=== PATIENT | male | born 1955 | race Caucasian/White ===

== ENCOUNTER 2021-06-10 03:29 | Inpatient (IN) ==
[2021-06-10] MEDS ORDERED: *HR* Promethazine 25 MG/ML VIAL IM PRN (06:23)
[2021-06-10] MEDS ORDERED: Naloxone 0.4 MG/ML INJ IVP PRN (06:23)
[2021-06-10] MEDS ORDERED: Dextrose Gel 15 GM/37.5 ML TUBE PO PRN ×4 (06:31→08:46)
[2021-06-10] MEDS ORDERED: *HR* Dextrose 50 % in Water (Syg) 50 ML SYRINGE IVP PRN (06:31)
[2021-06-10] MEDS ORDERED: D5% in Water 1,000 ML IVC PRN ×2 (06:31→08:46)
[2021-06-10] MEDS ORDERED: Perflutren Lipid Microsphere 1.3 ML in 0.9 % Sodium Chloride 8.7 ML IVP PRN (06:49)
[2021-06-10 06:59] LABS: Basophils # 0.1 K/mcL (0.0-0.2); Basophils % 1.3 %; Eosinophils % 14.4 %; Immature Granulocytes % 0.3 % (0-4); Lymphocytes # 1.2 K/mcL (0.6-4.6); Mean Corpuscular HGB Conc 30.8 g/dL (31.6-35.5); Mean Corpuscular Hemoglobin 27.3 pg (28.0-33.3); Mean Corpuscular Volume 88.7 fL (83.0-100.0); Mean Platelet Volume 9.9 fL (9.4-12.4); Monocytes # 0.7 K/mcL (0.0-1.3); Monocytes % 18.1 %; Neutrophils # 1.3 K/mcL (1.6-8.9); Platelet Count 181 K/mcL (140-400); Red Blood Count 2.93 M/mcL (4.19-5.50); Red Cell Distribution Width 15.6 % (11.5-14.5); Segmented Neutrophils % 33.9 %; White Blood Count 3.8 K/mcL (4.3-11.1)
[2021-06-10 07:01] LABS: Eosinophils # 0.6 K/mcL (0.0-0.6)
[2021-06-10 07:06] LABS: INR 2.4; Prothrombin Time 26.5 Seconds (9.4-12.1)
[2021-06-10 07:20] LABS: Alanine Aminotransferase 35 Units/L (7-52); Albumin 3.1 g/dL (3.5-5.7); Albumin/Globulin Ratio 0.9 (1.1-2.2); Alkaline Phosphatase 199 Units/L (34-104); Aspartate Amino Transferase 31 Units/L (13-39); BUN/Creatinine Ratio 18 (6-26); Bilirubin,Total 0.3 mg/dL (0.3-1.0); Blood Urea Nitrogen 68 mg/dL (8-23); Calcium 8.5 mg/dL (8.6-10.3); Carbon Dioxide 19 mEq/L (23-29); Chloride 113 mEq/L (98-107); Globulin 3.3 g/dL (2.4-3.5); Glucose 63 mg/dL (70-105); Magnesium 2.4 mg/dL (1.6-2.6); Osmolality,Calculated 310 (280-300); Phosphorous 4.9 mg/dL (2.7-4.5); Potassium 4.7 mEq/L (3.5-5.1); Sodium 141 mEq/L (136-145); Total Protein 6.4 g/dL (6.4-8.9); Troponin I < 0.03 ng/mL (< 0.04); eGFR For African Americans 19 (> 60); eGFR For Non-African Americans 16 (> 60)
[2021-06-10] MEDS: cefTRIAXone 1,000 MG in 0.9 % Sodium Chloride Mini Bag 100 ML IVPB SCH (10:37)
[2021-06-10] MEDS: Doxycycline 100 MG in 0.9 % Sodium Chloride Mini Bag 100 ML IVPB SCH ×2 (10:38→20:43)
[2021-06-10] MEDS: Insulin LISPRO 300 UNITS/3 ML VIAL SUBQ SCH ×3 (10:38→20:42)
[2021-06-10] MEDS ORDERED: levoFLOXacin 750 MG/150 ML 750 MG/150 ML BAG IVPB SCH (17:00)
[2021-06-10] MEDS ORDERED: Warfarin perPT PO PRN (18:00)
[2021-06-10] MEDS ORDERED: *HR* Warfarin 5 MG TABLET PO ONE (18:00)
[2021-06-10] MEDS: 0.9 % Sodium Chloride 1,000 ML IVC SCH (18:01)
[2021-06-10] MEDS: Acetaminophen 325 MG TABLET PO PRN (20:40)
[2021-06-11] MEDS: cefTRIAXone 1,000 MG in 0.9 % Sodium Chloride Mini Bag 100 ML IVPB SCH (08:03)
[2021-06-11 08:04] LABS: Albumin 3.1 g/dL (3.5-5.7); Albumin/Globulin Ratio 0.9 (1.1-2.2); Bilirubin,Direct 0.1 mg/dL (0.0-0.2); Bilirubin,Indirect 0.2 mg/dL (0.0-1.0); Bilirubin,Total 0.3 mg/dL (0.3-1.0); Calcium 8.5 mg/dL (8.6-10.3); Globulin 3.4 g/dL (2.4-3.5); Magnesium 2.2 mg/dL (1.6-2.6); Potassium 5.1 mEq/L (3.5-5.1); Total Protein 6.5 g/dL (6.4-8.9)
[2021-06-11] MEDS: Insulin LISPRO 300 UNITS/3 ML VIAL SUBQ SCH ×4 (08:04→20:51)
[2021-06-11] MEDS: 0.9 % Sodium Chloride 1,000 ML IVC SCH ×2 (08:04→15:49)
[2021-06-11] MEDS: Doxycycline 100 MG in 0.9 % Sodium Chloride Mini Bag 100 ML IVPB SCH ×2 (08:04→20:48)
[2021-06-11 08:29] LABS: Basophils # 0.1 K/mcL (0.0-0.2); Basophils % 1.1 %; Eosinophils # 0.6 K/mcL (0.0-0.6); Hematocrit 27.5 % (37.5-50.1); Hemoglobin 8.1 g/dL (12.9-16.9); Immature Granulocytes % 0.4 % (0-4); Lymphocytes # 1.2 K/mcL (0.6-4.6); Lymphocytes % 25.9 %; Mean Corpuscular HGB Conc 29.5 g/dL (31.6-35.5); Mean Corpuscular Hemoglobin 26.6 pg (28.0-33.3); Mean Corpuscular Volume 90.5 fL (83.0-100.0); Mean Platelet Volume 10.5 fL (9.4-12.4); Monocytes # 0.7 K/mcL (0.0-1.3); Monocytes % 15.2 %; Neutrophils # 2.1 K/mcL (1.6-8.9); Platelet Count 211 K/mcL (140-400); Red Blood Count 3.04 M/mcL (4.19-5.50); Red Cell Distribution Width 15.5 % (11.5-14.5); Segmented Neutrophils % 44.4 %; White Blood Count 4.7 K/mcL (4.3-11.1)
[2021-06-11 08:40] LABS: INR 1.8; Prothrombin Time 19.8 Seconds (9.4-12.1)
[2021-06-11] MEDS: Divalproex (12 HR) 250 MG TABLET PO SCH ×2 (13:40→20:50)
[2021-06-11 14:55] LABS: Ferritin 154 ng/mL (20-250); Iron 31 mcg/dL (65-175)
[2021-06-11] MEDS ORDERED: Gabapentin 400 MG CAPSULE PO SCH (15:00)
[2021-06-11] MEDS: hydrALAZINE 25 MG TABLET PO SCH ×3 (15:48→20:50)
[2021-06-11] MEDS ORDERED: *HR* Warfarin 10 MG TABLET PO ONE (18:00)
[2021-06-11] MEDS: Primidone 50 MG TABLET PO SCH (20:49)
[2021-06-11] MEDS: amLODIPine 5 MG TABLET PO SCH (20:49)
[2021-06-11] MEDS: lamoTRIgine 100 MG TABLET PO SCH (20:50)
[2021-06-11] MEDS: Acetaminophen 325 MG TABLET PO PRN (20:52)
[2021-06-11] MEDS ORDERED: hydrALAZINE 25 MG TABLET PO ONE (21:46)
[2021-06-12] MEDS: 0.9 % Sodium Chloride 1,000 ML IVC SCH (02:18)
[2021-06-12 02:28] LABS: Calcium 8.2 mg/dL (8.6-10.3); Magnesium 2.1 mg/dL (1.6-2.6); Potassium 5.1 mEq/L (3.5-5.1)
[2021-06-12 02:29] LABS: Chol/HDL Ratio 3.9 (0-4.9)
[2021-06-12 02:44] LABS: Basophils % 0.8 %; Eosinophils # 0.6 K/mcL (0.0-0.6); Eosinophils % 11.7 %; Hematocrit 26.5 % (37.5-50.1); Hemoglobin 8.2 g/dL (12.9-16.9); Immature Granulocytes % 0.4 % (0-4); Lymphocytes # 1.2 K/mcL (0.6-4.6); Mean Corpuscular HGB Conc 30.9 g/dL (31.6-35.5); Mean Corpuscular Hemoglobin 27.8 pg (28.0-33.3); Mean Corpuscular Volume 89.8 fL (83.0-100.0); Mean Platelet Volume 10.3 fL (9.4-12.4); Monocytes # 0.8 K/mcL (0.0-1.3); Monocytes % 14.7 %; Neutrophils # 2.6 K/mcL (1.6-8.9); Platelet Count 223 K/mcL (140-400); Red Blood Count 2.95 M/mcL (4.19-5.50); Red Cell Distribution Width 15.1 % (11.5-14.5); Segmented Neutrophils % 49.4 %; White Blood Count 5.3 K/mcL (4.3-11.1)
[2021-06-12 02:57] LABS: INR 1.7; Prothrombin Time 18.5 Seconds (9.4-12.1)
[2021-06-12] MEDS: hydrALAZINE 25 MG TABLET PO SCH ×3 (05:28→21:15)
[2021-06-12] MEDS: Insulin LISPRO 300 UNITS/3 ML VIAL SUBQ SCH ×4 (07:50→21:23)
[2021-06-12] MEDS: Divalproex (12 HR) 250 MG TABLET PO SCH ×2 (07:59→21:15)
[2021-06-12] MEDS: Finasteride 5 MG TABLET PO SCH (07:59)
[2021-06-12] MEDS: Famotidine 20 MG TABLET PO SCH (08:00)
[2021-06-12] MEDS: cefTRIAXone 1,000 MG in 0.9 % Sodium Chloride Mini Bag 100 ML IVPB SCH (08:00)
[2021-06-12] MEDS: Gabapentin 300 MG CAPSULE PO SCH (08:00)
[2021-06-12] MEDS: Doxycycline 100 MG in 0.9 % Sodium Chloride Mini Bag 100 ML IVPB SCH (08:00)
[2021-06-12] MEDS ORDERED: Famotidine 20 MG TABLET PO SCH (09:00)
[2021-06-12] MEDS: polyethylene glycoL 3350 17 GM POWD.PACK PO SCH ×2 (10:51→21:16)
[2021-06-12 13:01] LABS: Bilirubin,Urine Negative (Negative); Blood,Urine Negative (Negative); Clarity,Urine Clear (Clear); Color,Urine Light-Yellow (Yellow); Glucose,Urine (UA) 300 mg/dL (Normal); Ketones,Urine Negative (Negative); Leukocyte Esterase,Urine Negative (Negative); Nitrite,Urine Negative (Negative); PH,Urine 6.5 pH Units (5.0-8.0); Protein,Urine >=600 mg/dL (Neg-Trace); Specific Gravity,Urine 1.017 (1.010-1.025); Squamous Epithelial Cell,Urine Few per hpf (None-Few); Urobilinogen,Urine Normal (Normal); WBC,Urine 0-3 per hpf (0-3)
[2021-06-12 14:01] LABS: Sodium, Urine 68.2 mEq/L
[2021-06-12 14:34] LABS: Creatinine,Urine 74 mg/dL; Microalbumin,Urine > 1350 mg/L; Protein/Creatinine Ratio,Urine 10.43 mg/mg (0.00-0.20)
[2021-06-12 14:43] LABS: Adenovirus Not Detected (Not Detect); Bordetella Pertussis Not Detected (Not Detect); Chlamydophila pneumoniae Not Detected (Not Detect); Coronavirus 229E Not Detected (Not Detect); Coronavirus HKU1 Not Detected (Not Detect); Coronavirus NL63 Not Detected (Not Detect); Coronavirus OC43 Not Detected (Not Detect); Human Metapneumovirus Not Detected (Not Detect); Human Rhinovirus/Enterovirus Not Detected (Not Detect); Influenza A Subtype 2009 H1 Not Detected (Not Detect); Influenza B Not Detected (Not Detect); Mycoplasma pneumoniae Not Detected (Not Detect); Parainfluenza Virus 1 Not Detected (Not Detect); Parainfluenza Virus 2 Not Detected (Not Detect); Parainfluenza Virus 3 Not Detected (Not Detect); Parainfluenza Virus 4 Not Detected (Not Detect); Respiratory Syncytial Virus Not Detected (Not Detect); SARS-CoV-2 Not Detected (Not Detect)
[2021-06-12] MEDS: Ringers Solution, Lactated 1,000 ML IVC SCH (15:12)
[2021-06-12] MEDS ORDERED: *HR* Warfarin 10 MG TABLET PO ONE (18:00)
[2021-06-12] MEDS: Doxycycline 100 MG CAPSULE PO SCH (21:14)
[2021-06-12] MEDS: amLODIPine 5 MG TABLET PO SCH (21:15)
[2021-06-12] MEDS: lamoTRIgine 100 MG TABLET PO SCH (21:15)
[2021-06-12] MEDS: Primidone 50 MG TABLET PO SCH (21:15)
[2021-06-12] MEDS: Tobramycin Opth SOLN 5 ML BOTTLE BOTH EYES SCH (21:24)
[2021-06-13 03:28] LABS: Hematocrit 27.4 % (37.5-50.1); Mean Corpuscular HGB Conc 29.2 g/dL (31.6-35.5); Mean Corpuscular Hemoglobin 26.4 pg (28.0-33.3); Mean Corpuscular Volume 90.4 fL (83.0-100.0); Mean Platelet Volume 10.3 fL (9.4-12.4); Platelet Count 218 K/mcL (140-400); Red Blood Count 3.03 M/mcL (4.19-5.50); Red Cell Distribution Width 15.4 % (11.5-14.5); White Blood Count 5.9 K/mcL (4.3-11.1)
[2021-06-13 03:38] LABS: Prothrombin Time 33.7 Seconds (9.4-12.1)
[2021-06-13 03:41] LABS: Calcium 8.5 mg/dL (8.6-10.3); Potassium 4.9 mEq/L (3.5-5.1)
[2021-06-13] MEDS: Ringers Solution, Lactated 1,000 ML IVC SCH (04:30)
[2021-06-13] MEDS: hydrALAZINE 25 MG TABLET PO SCH ×3 (06:47→20:25)
[2021-06-13] MEDS: Insulin LISPRO 300 UNITS/3 ML VIAL SUBQ SCH ×4 (09:04→20:26)
[2021-06-13] MEDS: cefTRIAXone 1,000 MG in 0.9 % Sodium Chloride Mini Bag 100 ML IVPB SCH (09:20)
[2021-06-13] MEDS: Divalproex (12 HR) 250 MG TABLET PO SCH ×2 (09:21→20:25)
[2021-06-13] MEDS: Doxycycline 100 MG CAPSULE PO SCH ×2 (09:21→20:24)
[2021-06-13] MEDS: Famotidine 20 MG TABLET PO SCH (09:21)
[2021-06-13] MEDS: Finasteride 5 MG TABLET PO SCH (09:21)
[2021-06-13] MEDS: Gabapentin 300 MG CAPSULE PO SCH (09:21)
[2021-06-13] MEDS: polyethylene glycoL 3350 17 GM POWD.PACK PO SCH ×2 (09:21→20:10)
[2021-06-13] MEDS: Tobramycin Opth SOLN 5 ML BOTTLE BOTH EYES SCH ×2 (09:30→20:27)
[2021-06-13] MEDS: Fluticasone Propionate Nasal 50 MCG/SPRAY BOTTLE NS SCH (12:38)
[2021-06-13] MEDS: Sodium Bicarbonate 50 MEQ in 0.45 % Sodium Chloride 1,000 ML IVC SCH (15:22)
[2021-06-13] MEDS: Primidone 50 MG TABLET PO SCH (20:24)
[2021-06-13] MEDS: amLODIPine 5 MG TABLET PO SCH (20:25)
[2021-06-13] MEDS: lamoTRIgine 100 MG TABLET PO SCH (20:25)
[2021-06-13] MEDS: Acetaminophen 325 MG TABLET PO PRN (20:36)
[2021-06-13 21:20] LABS: Complement C3 151 mg/dL (87-200)
[2021-06-14] MEDS: Sodium Bicarbonate 50 MEQ in 0.45 % Sodium Chloride 1,000 ML IVC SCH ×2 (02:10→14:25)
[2021-06-14] MEDS: hydrALAZINE 25 MG TABLET PO SCH ×3 (05:28→20:58)
[2021-06-14 05:47] LABS: Hematocrit 25.9 % (37.5-50.1); Hemoglobin 7.9 g/dL (12.9-16.9); Mean Corpuscular HGB Conc 30.5 g/dL (31.6-35.5); Mean Corpuscular Hemoglobin 27.1 pg (28.0-33.3); Mean Corpuscular Volume 88.7 fL (83.0-100.0); Platelet Count 212 K/mcL (140-400); Red Blood Count 2.92 M/mcL (4.19-5.50); Red Cell Distribution Width 15.3 % (11.5-14.5); White Blood Count 4.7 K/mcL (4.3-11.1)
[2021-06-14 05:53] LABS: INR 3.1; Prothrombin Time 34.7 Seconds (9.4-12.1)
[2021-06-14 06:39] LABS: Calcium 8.4 mg/dL (8.6-10.3); Potassium 4.8 mEq/L (3.5-5.1)
[2021-06-14] MEDS: Finasteride 5 MG TABLET PO SCH (08:15)
[2021-06-14] MEDS: Divalproex (12 HR) 250 MG TABLET PO SCH ×2 (08:15→20:59)
[2021-06-14] MEDS: NIFEdipine XL (24 HR) 60 MG TAB.ER.24 PO SCH (08:15)
[2021-06-14] MEDS: Doxycycline 100 MG CAPSULE PO SCH (08:15)
[2021-06-14] MEDS: Famotidine 20 MG TABLET PO SCH (08:15)
[2021-06-14] MEDS: Gabapentin 300 MG CAPSULE PO SCH (08:15)
[2021-06-14] MEDS: Insulin LISPRO 300 UNITS/3 ML VIAL SUBQ SCH ×4 (08:16→22:06)
[2021-06-14] MEDS: cefTRIAXone 1,000 MG in 0.9 % Sodium Chloride Mini Bag 100 ML IVPB SCH (08:16)
[2021-06-14] MEDS: ALFUZOSIN HCL 10 MG PO SCH (08:37)
[2021-06-14] MEDS: Fluticasone Propionate Nasal 50 MCG/SPRAY BOTTLE NS SCH (08:37)
[2021-06-14] MEDS: polyethylene glycoL 3350 17 GM POWD.PACK PO SCH ×2 (08:37→22:05)
[2021-06-14] MEDS: Tobramycin Opth SOLN 5 ML BOTTLE BOTH EYES SCH ×2 (08:38→22:05)
[2021-06-14] MEDS ORDERED: Ondansetron 4 MG/2 ML VIAL IVP ONE (14:45)
[2021-06-14] MEDS: Acetaminophen 325 MG TABLET PO PRN (15:47)
[2021-06-14] MEDS ORDERED: Prochlorperazine 10 MG/2 ML VIAL IVP ONE (16:00)
[2021-06-14] MEDS: lamoTRIgine 100 MG TABLET PO SCH (20:59)
[2021-06-14] MEDS: Primidone 50 MG TABLET PO SCH (20:59)
[2021-06-14 21:25] LABS: ABG Base Excess -4 mEq/L (-2 to 3); ABG HCO3 21 mEq/L (21-27); ABG Oxygen Saturation 90 % (95-98); ABG PCO2 38 mmHg (35-45); ABG PH 7.36 pH Units (7.32-7.45); ABG PO2 60 mmHg (85-104); ABG TCO2 22 mEq/L (20-26)
[2021-06-14 21:57] LABS: Amorphous Sediment,Urine Few per hpf (None-Few); Bacteria,Urine Few per hpf (None-Few); Mucus,Urine Few per lpf (None-Few); Squamous Epithelial Cell,Urine Few per hpf (None-Few)
[2021-06-14 22:46] LABS: Bilirubin,Urine Negative (Negative); Blood,Urine Negative (Negative); Clarity,Urine Clear (Clear); Color,Urine Yellow (Yellow); Glucose,Urine (UA) >=1000 mg/dL (Normal); Ketones,Urine Negative (Negative); Leukocyte Esterase,Urine Negative (Negative); Nitrite,Urine Negative (Negative); Protein,Urine >=600 mg/dL (Neg-Trace); Specific Gravity,Urine 1.021 (1.010-1.025); Urobilinogen,Urine Normal (Normal)
[2021-06-15] MEDS ORDERED: *HR* LORazepam 2 MG/ML VIAL IVP ONE (02:07)
[2021-06-15] MEDS: Sodium Bicarbonate 50 MEQ in 0.45 % Sodium Chloride 1,000 ML IVC SCH ×3 (02:15→21:31)
[2021-06-15] MEDS: hydrALAZINE 25 MG TABLET PO SCH ×3 (06:25→20:48)
[2021-06-15 07:17] LABS: INR 2.1; Prothrombin Time 22.8 Seconds (9.4-12.1)
[2021-06-15 07:24] LABS: Calcium 8.1 mg/dL (8.6-10.3); Potassium 4.8 mEq/L (3.5-5.1)
[2021-06-15] MEDS: Gabapentin 300 MG CAPSULE PO SCH (08:10)
[2021-06-15] MEDS: Famotidine 20 MG TABLET PO SCH (08:10)
[2021-06-15] MEDS: Finasteride 5 MG TABLET PO SCH (08:10)
[2021-06-15] MEDS: NIFEdipine XL (24 HR) 60 MG TAB.ER.24 PO SCH (08:10)
[2021-06-15] MEDS: Divalproex (12 HR) 250 MG TABLET PO SCH ×2 (08:10→20:48)
[2021-06-15] MEDS: ALFUZOSIN HCL 10 MG PO SCH (08:10)
[2021-06-15] MEDS: polyethylene glycoL 3350 17 GM POWD.PACK PO SCH ×2 (08:11→20:48)
[2021-06-15] MEDS: Fluticasone Propionate Nasal 50 MCG/SPRAY BOTTLE NS SCH (08:11)
[2021-06-15] MEDS: Insulin LISPRO 300 UNITS/3 ML VIAL SUBQ SCH ×4 (08:14→20:50)
[2021-06-15] MEDS: Tobramycin Opth SOLN 5 ML BOTTLE BOTH EYES SCH ×2 (08:16→20:49)
[2021-06-15 08:36] LABS: % Iron Saturation 14 % (20-55); Transferrin 162 mg/dL (200-400)
[2021-06-15] MEDS: Insulin DETEMIR 100 UNIT/ML X5UNITS SUBQ SCH ×2 (11:11→20:47)
[2021-06-15] MEDS ORDERED: *HR* Labetalol 20 MG/4 ML SYRINGE IVP ONE (16:22)
[2021-06-15] MEDS ORDERED: Furosemide 40 MG/4 ML VIAL IVP ONE (16:31)
[2021-06-15] MEDS ORDERED: NIFEdipine XL (24 HR) 30 MG TAB.ER.24 PO ONE (16:45)
[2021-06-15] MEDS ORDERED: *HR* Warfarin 5 MG TABLET PO ONE (18:00)
[2021-06-15] MEDS: lamoTRIgine 100 MG TABLET PO SCH (20:48)
[2021-06-15] MEDS: Primidone 50 MG TABLET PO SCH (20:48)
[2021-06-16] MEDS: Sodium Bicarbonate 50 MEQ in 0.45 % Sodium Chloride 1,000 ML IVC SCH (05:37)
[2021-06-16] MEDS: hydrALAZINE 25 MG TABLET PO SCH ×3 (05:38→20:30)
[2021-06-16 07:46] LABS: INR 1.6; Prothrombin Time 18.1 Seconds (9.4-12.1)
[2021-06-16 08:04] LABS: Calcium 8.4 mg/dL (8.6-10.3); Potassium 5.1 mEq/L (3.5-5.1)
[2021-06-16] MEDS: NIFEdipine XL (24 HR) 30 MG TAB.ER.24 PO SCH (08:57)
[2021-06-16] MEDS: Finasteride 5 MG TABLET PO SCH (08:58)
[2021-06-16] MEDS: Divalproex (12 HR) 250 MG TABLET PO SCH ×2 (08:58→20:29)
[2021-06-16] MEDS: polyethylene glycoL 3350 17 GM POWD.PACK PO SCH ×2 (08:58→20:30)
[2021-06-16] MEDS: Famotidine 20 MG TABLET PO SCH (08:58)
[2021-06-16] MEDS: Gabapentin 300 MG CAPSULE PO SCH (08:58)
[2021-06-16] MEDS: Insulin LISPRO 300 UNITS/3 ML VIAL SUBQ SCH ×4 (09:00→20:37)
[2021-06-16] MEDS: Fluticasone Propionate Nasal 50 MCG/SPRAY BOTTLE NS SCH (09:00)
[2021-06-16] MEDS: Tobramycin Opth SOLN 5 ML BOTTLE BOTH EYES SCH ×2 (09:01→20:31)
[2021-06-16] MEDS: ALFUZOSIN HCL 10 MG PO SCH (09:01)
[2021-06-16] MEDS: carvediloL 6.25 MG TABLET PO SCH ×2 (09:10→17:17)
[2021-06-16] MEDS: Insulin DETEMIR 100 UNIT/ML X5UNITS SUBQ SCH ×2 (09:52→20:29)
[2021-06-16] MEDS ORDERED: Albumin 25% 25gram/100mL 25 GM/100 ML IV.SOLN IVPB ONE ×2 (13:18→22:00)
[2021-06-16] MEDS ORDERED: Furosemide 40 MG/4 ML VIAL IVP ONE ×2 (15:30→23:59)
[2021-06-16] MEDS ORDERED: *HR* Warfarin 10 MG TABLET PO ONE (18:00)
[2021-06-16] MEDS: lamoTRIgine 100 MG TABLET PO SCH (20:30)
[2021-06-16] MEDS: Primidone 50 MG TABLET PO SCH (20:30)
[2021-06-17] MEDS: hydrALAZINE 25 MG TABLET PO SCH ×3 (05:26→22:20)
[2021-06-17 06:12] LABS: INR 2.2; Prothrombin Time 24.9 Seconds (9.4-12.1)
[2021-06-17 06:26] LABS: Calcium 9.1 mg/dL (8.6-10.3)
[2021-06-17] MEDS: Insulin LISPRO 300 UNITS/3 ML VIAL SUBQ SCH ×4 (07:33→22:22)
[2021-06-17] MEDS: NIFEdipine XL (24 HR) 30 MG TAB.ER.24 PO SCH (07:38)
[2021-06-17] MEDS: Famotidine 20 MG TABLET PO SCH (07:38)
[2021-06-17] MEDS: Divalproex (12 HR) 250 MG TABLET PO SCH ×2 (07:38→22:20)
[2021-06-17] MEDS: Finasteride 5 MG TABLET PO SCH (07:39)
[2021-06-17] MEDS: Fluticasone Propionate Nasal 50 MCG/SPRAY BOTTLE NS SCH (07:39)
[2021-06-17] MEDS: polyethylene glycoL 3350 17 GM POWD.PACK PO SCH ×2 (07:39→22:20)
[2021-06-17] MEDS: Tobramycin Opth SOLN 5 ML BOTTLE BOTH EYES SCH ×2 (07:39→22:22)
[2021-06-17] MEDS: Gabapentin 300 MG CAPSULE PO SCH (07:39)
[2021-06-17] MEDS: Insulin DETEMIR 100 UNIT/ML X5UNITS SUBQ SCH ×2 (07:41→22:23)
[2021-06-17] MEDS: carvediloL 6.25 MG TABLET PO SCH ×2 (07:44→18:09)
[2021-06-17] MEDS ORDERED: *HR* Heparin 10,000 UNIT/10 ML VIAL IV PRN (10:44)
[2021-06-17] MEDS ORDERED: 0.9 % Sodium Chloride 250 ML IVC PRN (10:44)
[2021-06-17] MEDS ORDERED: 0.9 % Sodium Chloride 1,000 ML PRIME SCH (10:45)
[2021-06-17] MEDS: Ondansetron 4 MG/2 ML VIAL IVP PRN (11:56)
[2021-06-17 12:39] LABS: Hepatitis B Surface Antibody < 3.10 mIU/mL
[2021-06-17 12:49] LABS: Hepatitis B Surface Antigen Nonreactive (Nonreactive)
[2021-06-17] MEDS ORDERED: *HR* Heparin 5,000 UNIT/ML VIAL ONE (14:07)
[2021-06-17] MEDS ORDERED: *HR* Warfarin 5 MG TABLET PO ONE (18:00)
[2021-06-17] MEDS: Primidone 50 MG TABLET PO SCH (22:20)
[2021-06-17] MEDS: lamoTRIgine 100 MG TABLET PO SCH (22:20)
[2021-06-18 01:39] LABS: Lambda Qnt Free Light Chains 52.7 mg/L (5.71-26.30)
[2021-06-18 03:10] LABS: Hematocrit 22.8 % (37.5-50.1); Mean Corpuscular HGB Conc 30.7 g/dL (31.6-35.5); Mean Corpuscular Hemoglobin 27.3 pg (28.0-33.3); Mean Corpuscular Volume 89.1 fL (83.0-100.0); Mean Platelet Volume 10.2 fL (9.4-12.4); Platelet Count 186 K/mcL (140-400); Red Blood Count 2.56 M/mcL (4.19-5.50); Red Cell Distribution Width 15.4 % (11.5-14.5); White Blood Count 5.3 K/mcL (4.3-11.1)
[2021-06-18 03:24] LABS: Calcium 8.7 mg/dL (8.6-10.3); Potassium 4.8 mEq/L (3.5-5.1)
[2021-06-18 03:37] LABS: INR 3.7; Prothrombin Time 40.5 Seconds (9.4-12.1)
[2021-06-18] MEDS: hydrALAZINE 25 MG TABLET PO SCH (05:28)
[2021-06-18 06:53] LABS: ANA IgG by ELISA DETECTED (None Detected); Kappa Qnt Free Light Chains 83.57 mg/L (3.30-19.40); Serine Protease-3 Antibody 6 AU/mL (0-19)
[2021-06-18] MEDS: *HR* Dextrose 50 % in Water (Syg) 50 ML SYRINGE IVP PRN ×3 (07:09→20:10)
[2021-06-18] MEDS: Insulin LISPRO 300 UNITS/3 ML VIAL SUBQ SCH ×4 (07:50→20:16)
[2021-06-18] MEDS ORDERED: *HR* Heparin 10,000 UNIT/10 ML VIAL IV PRN (07:51)
[2021-06-18] MEDS ORDERED: 0.9 % Sodium Chloride 250 ML IVC PRN (07:51)
[2021-06-18] MEDS: Divalproex (12 HR) 250 MG TABLET PO SCH ×2 (07:53→21:15)
[2021-06-18] MEDS: carvediloL 6.25 MG TABLET PO SCH (07:53)
[2021-06-18] MEDS: Finasteride 5 MG TABLET PO SCH (07:53)
[2021-06-18] MEDS: Famotidine 20 MG TABLET PO SCH (07:53)
[2021-06-18] MEDS: NIFEdipine XL (24 HR) 30 MG TAB.ER.24 PO SCH (07:53)
[2021-06-18] MEDS: Gabapentin 300 MG CAPSULE PO SCH (07:53)
[2021-06-18] MEDS: polyethylene glycoL 3350 17 GM POWD.PACK PO SCH ×2 (07:54→21:15)
[2021-06-18] MEDS: Insulin DETEMIR 100 UNIT/ML X5UNITS SUBQ SCH ×2 (07:54→20:17)
[2021-06-18] MEDS: Tobramycin Opth SOLN 5 ML BOTTLE BOTH EYES SCH ×2 (07:54→21:15)
[2021-06-18] MEDS: Fluticasone Propionate Nasal 50 MCG/SPRAY BOTTLE NS SCH (07:55)
[2021-06-18] MEDS ORDERED: cloNIDine HCL 0.1 MG TABLET PO PRN (11:13)
[2021-06-18] MEDS: Acetaminophen 325 MG TABLET PO PRN (15:10)
[2021-06-18] MEDS: carvediloL 25 MG TABLET PO SCH (17:55)
[2021-06-18 21:08] LABS: Hematocrit 23.2 % (37.5-50.1); Hemoglobin 6.9 g/dL (12.9-16.9)
[2021-06-18] MEDS: lamoTRIgine 100 MG TABLET PO SCH (21:15)
[2021-06-18] MEDS: Primidone 50 MG TABLET PO SCH (21:15)
[2021-06-18] MEDS: Melatonin 3 MG TABLET PO PRN (23:13)
[2021-06-18] MEDS ORDERED: 0.9 % Sodium Chloride 250 ML ONE (23:46)
[2021-06-19] MEDS ORDERED: 0.9 % Sodium Chloride 250 ML IVC PRN (08:39)
[2021-06-19] MEDS ORDERED: *HR* Heparin 10,000 UNIT/10 ML VIAL IV PRN (08:39)
[2021-06-19] MEDS ORDERED: 0.9 % Sodium Chloride 1,000 ML PRIME SCH (08:45)
[2021-06-19] MEDS: Insulin LISPRO 300 UNITS/3 ML VIAL SUBQ SCH ×4 (09:42→20:30)
[2021-06-19] MEDS: carvediloL 25 MG TABLET PO SCH ×2 (09:43→17:50)
[2021-06-19] MEDS: Divalproex (12 HR) 250 MG TABLET PO SCH ×2 (09:43→20:34)
[2021-06-19] MEDS: Finasteride 5 MG TABLET PO SCH (09:43)
[2021-06-19] MEDS: polyethylene glycoL 3350 17 GM POWD.PACK PO SCH ×2 (09:43→20:32)
[2021-06-19] MEDS: Fluticasone Propionate Nasal 50 MCG/SPRAY BOTTLE NS SCH (09:43)
[2021-06-19] MEDS: Insulin DETEMIR 100 UNIT/ML X5UNITS SUBQ SCH ×2 (09:43→20:31)
[2021-06-19] MEDS: Tobramycin Opth SOLN 5 ML BOTTLE BOTH EYES SCH ×2 (09:44→23:53)
[2021-06-19 10:31] LABS: Basophils # 0.1 K/mcL (0.0-0.2); Basophils % 0.8 %; Eosinophils # 0.6 K/mcL (0.0-0.6); Eosinophils % 9.6 %; Hematocrit 26.2 % (37.5-50.1); Immature Granulocytes % 0.5 % (0-4); Lymphocytes # 1.1 K/mcL (0.6-4.6); Lymphocytes % 17.1 %; Mean Corpuscular HGB Conc 30.5 g/dL (31.6-35.5); Mean Corpuscular Hemoglobin 26.8 pg (28.0-33.3); Mean Corpuscular Volume 87.6 fL (83.0-100.0); Mean Platelet Volume 9.6 fL (9.4-12.4); Monocytes # 0.8 K/mcL (0.0-1.3); Monocytes % 11.8 %; Neutrophils # 3.9 K/mcL (1.6-8.9); Platelet Count 164 K/mcL (140-400); Red Blood Count 2.99 M/mcL (4.19-5.50); Red Cell Distribution Width 15.1 % (11.5-14.5); Segmented Neutrophils % 60.2 %; White Blood Count 6.4 K/mcL (4.3-11.1)
[2021-06-19 10:47] LABS: INR 4.6; Prothrombin Time 50.2 Seconds (9.4-12.1)
[2021-06-19 10:48] LABS: Bilirubin,Total 0.4 mg/dL (0.3-1.0); Calcium 8.2 mg/dL (8.6-10.3); Globulin 2.9 g/dL (2.4-3.5); Magnesium 2.1 mg/dL (1.6-2.6); Potassium 4.5 mEq/L (3.5-5.1); Total Protein 5.9 g/dL (6.4-8.9)
[2021-06-19] MEDS: Ondansetron 4 MG/2 ML VIAL IVP PRN (17:51)
[2021-06-19] MEDS: lamoTRIgine 100 MG TABLET PO SCH (20:34)
[2021-06-19] MEDS: Gabapentin 100 MG CAPSULE PO SCH (20:34)
[2021-06-19] MEDS: Primidone 50 MG TABLET PO SCH (20:34)
[2021-06-19] MEDS: cloNIDine HCL 0.1 MG TABLET PO SCH (20:34)
[2021-06-19] MEDS: Famotidine 20 MG TABLET PO SCH (20:35)
[2021-06-19 23:56] LABS: ANA HEp-2 IgG IFA DETECTED (<1:80); Anti Nuclear Ab Pattern HOMOGENEOUS
[2021-06-20 06:05] LABS: Basophils % 0.7 %; Eosinophils # 0.5 K/mcL (0.0-0.6); Eosinophils % 8.3 %; Hemoglobin 8.3 g/dL (12.9-16.9); Immature Granulocytes % 0.8 % (0-4); Lymphocytes # 1.2 K/mcL (0.6-4.6); Lymphocytes % 19.4 %; Mean Corpuscular HGB Conc 29.6 g/dL (31.6-35.5); Mean Corpuscular Hemoglobin 25.9 pg (28.0-33.3); Mean Corpuscular Volume 87.5 fL (83.0-100.0); Monocytes # 0.9 K/mcL (0.0-1.3); Monocytes % 14.3 %; Neutrophils # 3.5 K/mcL (1.6-8.9); Platelet Count 189 K/mcL (140-400); Red Cell Distribution Width 14.5 % (11.5-14.5); Segmented Neutrophils % 56.5 %; White Blood Count 6.1 K/mcL (4.3-11.1)
[2021-06-20 06:13] LABS: INR 3.7; Prothrombin Time 41.1 Seconds (9.4-12.1)
[2021-06-20 06:35] LABS: Albumin 3.1 g/dL (3.5-5.7); Bilirubin,Total 0.4 mg/dL (0.3-1.0); Calcium 8.8 mg/dL (8.6-10.3); Magnesium 2.1 mg/dL (1.6-2.6); Potassium 4.6 mEq/L (3.5-5.1); Total Protein 6.1 g/dL (6.4-8.9)
[2021-06-20] MEDS: Insulin LISPRO 300 UNITS/3 ML VIAL SUBQ SCH ×4 (07:37→21:13)
[2021-06-20] MEDS: carvediloL 25 MG TABLET PO SCH ×2 (08:28→16:54)
[2021-06-20] MEDS: cloNIDine HCL 0.1 MG TABLET PO SCH ×3 (08:28→21:12)
[2021-06-20] MEDS: Divalproex (12 HR) 250 MG TABLET PO SCH ×2 (08:28→21:13)
[2021-06-20] MEDS: Fluticasone Propionate Nasal 50 MCG/SPRAY BOTTLE NS SCH (08:28)
[2021-06-20] MEDS: Finasteride 5 MG TABLET PO SCH (08:28)
[2021-06-20] MEDS: Tobramycin Opth SOLN 5 ML BOTTLE BOTH EYES SCH ×2 (08:29→21:00)
[2021-06-20] MEDS: Insulin DETEMIR 100 UNIT/ML X5UNITS SUBQ SCH ×2 (08:36→21:13)
[2021-06-20] MEDS: polyethylene glycoL 3350 17 GM POWD.PACK PO SCH ×2 (08:37→21:13)
[2021-06-20] MEDS ORDERED: *HR* Warfarin 2 MG TABLET PO ONE (18:00)
[2021-06-20] MEDS: Gabapentin 100 MG CAPSULE PO SCH (21:12)
[2021-06-20] MEDS: Famotidine 20 MG TABLET PO SCH (21:12)
[2021-06-20] MEDS: Melatonin 3 MG TABLET PO PRN (21:12)
[2021-06-20] MEDS: lamoTRIgine 100 MG TABLET PO SCH (21:12)
[2021-06-20] MEDS: Primidone 50 MG TABLET PO SCH (21:13)
[2021-06-21 05:54] LABS: Basophils # 0.1 K/mcL (0.0-0.2); Basophils % 0.9 %; Eosinophils # 0.6 K/mcL (0.0-0.6); Eosinophils % 10.8 %; Hematocrit 26.7 % (37.5-50.1); Hemoglobin 8.1 g/dL (12.9-16.9); Immature Granulocytes % 0.7 % (0-4); Lymphocytes # 1.5 K/mcL (0.6-4.6); Lymphocytes % 26.4 %; Mean Corpuscular HGB Conc 30.3 g/dL (31.6-35.5); Mean Corpuscular Hemoglobin 26.7 pg (28.0-33.3); Mean Corpuscular Volume 88.1 fL (83.0-100.0); Monocytes # 0.9 K/mcL (0.0-1.3); Monocytes % 15.6 %; Neutrophils # 2.6 K/mcL (1.6-8.9); Platelet Count 180 K/mcL (140-400); Red Blood Count 3.03 M/mcL (4.19-5.50); Red Cell Distribution Width 14.5 % (11.5-14.5); Segmented Neutrophils % 45.6 %; White Blood Count 5.7 K/mcL (4.3-11.1)
[2021-06-21 06:03] LABS: Prothrombin Time 22.3 Seconds (9.4-12.1)
[2021-06-21 06:07] LABS: Bilirubin,Total 0.3 mg/dL (0.3-1.0); Calcium 8.5 mg/dL (8.6-10.3); Magnesium 2.2 mg/dL (1.6-2.6); Potassium 4.4 mEq/L (3.5-5.1)
[2021-06-21] MEDS: Insulin LISPRO 300 UNITS/3 ML VIAL SUBQ SCH ×4 (07:34→21:07)
[2021-06-21] MEDS: carvediloL 25 MG TABLET PO SCH ×2 (09:06→16:35)
[2021-06-21] MEDS: hydrALAZINE 25 MG TABLET PO SCH ×3 (09:06→21:07)
[2021-06-21] MEDS: cloNIDine HCL 0.1 MG TABLET PO SCH ×3 (09:06→21:07)
[2021-06-21] MEDS: Divalproex (12 HR) 250 MG TABLET PO SCH ×2 (09:06→21:06)
[2021-06-21] MEDS: Finasteride 5 MG TABLET PO SCH (09:06)
[2021-06-21] MEDS: Insulin DETEMIR 100 UNIT/ML X5UNITS SUBQ SCH ×2 (09:07→21:11)
[2021-06-21] MEDS: Fluticasone Propionate Nasal 50 MCG/SPRAY BOTTLE NS SCH (09:09)
[2021-06-21] MEDS: Tobramycin Opth SOLN 5 ML BOTTLE BOTH EYES SCH ×2 (09:09→21:07)
[2021-06-21] MEDS: polyethylene glycoL 3350 17 GM POWD.PACK PO SCH ×2 (09:12→21:07)
[2021-06-21] MEDS ORDERED: *HR* Heparin 5,000 UNIT/ML VIAL IVP PRN ×2 (12:09)
[2021-06-21] MEDS: Heparin 25,000 UNIT/250 ML 25,000 UNIT/250 ML IV.SOLN IVC SCH (13:11)
[2021-06-21] MEDS: Famotidine 20 MG TABLET PO SCH (21:06)
[2021-06-21] MEDS: Primidone 50 MG TABLET PO SCH (21:07)
[2021-06-21] MEDS: lamoTRIgine 100 MG TABLET PO SCH (21:07)
[2021-06-21] MEDS: Gabapentin 100 MG CAPSULE PO SCH (21:07)
[2021-06-22 03:27] LABS: Basophils # 0.1 K/mcL (0.0-0.2); Basophils % 0.8 %; Eosinophils # 0.7 K/mcL (0.0-0.6); Eosinophils % 9.2 %; Hematocrit 25.8 % (37.5-50.1); Hemoglobin 7.9 g/dL (12.9-16.9); Immature Granulocytes % 1.5 % (0-4); Lymphocytes # 1.7 K/mcL (0.6-4.6); Mean Corpuscular HGB Conc 30.6 g/dL (31.6-35.5); Mean Corpuscular Hemoglobin 26.8 pg (28.0-33.3); Mean Corpuscular Volume 87.5 fL (83.0-100.0); Mean Platelet Volume 10.2 fL (9.4-12.4); Monocytes # 0.9 K/mcL (0.0-1.3); Neutrophils # 4.1 K/mcL (1.6-8.9); Platelet Count 181 K/mcL (140-400); Red Blood Count 2.95 M/mcL (4.19-5.50); Red Cell Distribution Width 14.4 % (11.5-14.5); Segmented Neutrophils % 54.5 %; White Blood Count 7.5 K/mcL (4.3-11.1)
[2021-06-22 03:47] LABS: Bilirubin,Total 0.3 mg/dL (0.3-1.0); Calcium 8.5 mg/dL (8.6-10.3); Globulin 3.1 g/dL (2.4-3.5); Magnesium 2.2 mg/dL (1.6-2.6); Potassium 4.4 mEq/L (3.5-5.1); Total Protein 6.1 g/dL (6.4-8.9)
[2021-06-22 04:06] LABS: Heparin anti-factor XA UFH 0.87 IU/mL (0.30-0.70); INR 1.7; Prothrombin Time 18.9 Seconds (9.4-12.1)
[2021-06-22] MEDS: Heparin 25,000 UNIT/250 ML 25,000 UNIT/250 ML IV.SOLN IVC SCH (05:59)
[2021-06-22] MEDS: Insulin LISPRO 300 UNITS/3 ML VIAL SUBQ SCH ×4 (07:48→22:03)
[2021-06-22] MEDS ORDERED: cloNIDine HCL 0.1 MG TABLET PO SCH ×2 (09:00)
[2021-06-22 10:01] LABS: Histone Antibody, IgG 0.2 Units (0.0-0.9)
[2021-06-22] MEDS: Ipratropium/Albuterol Neb 3 ML IH SCH ×3 (10:08→19:55)
[2021-06-22] MEDS: Insulin DETEMIR 100 UNIT/ML X5UNITS SUBQ SCH ×2 (10:42→22:02)
[2021-06-22] MEDS: polyethylene glycoL 3350 17 GM POWD.PACK PO SCH ×2 (11:38→22:02)
[2021-06-22] MEDS: Tobramycin Opth SOLN 5 ML BOTTLE BOTH EYES SCH ×2 (11:40→22:02)
[2021-06-22] MEDS: Fluticasone Propionate Nasal 50 MCG/SPRAY BOTTLE NS SCH (11:40)
[2021-06-22] MEDS: Divalproex (12 HR) 250 MG TABLET PO SCH ×2 (11:42→22:01)
[2021-06-22] MEDS: Finasteride 5 MG TABLET PO SCH (11:42)
[2021-06-22] MEDS: carvediloL 25 MG TABLET PO SCH ×2 (11:42→16:46)
[2021-06-22] MEDS: hydrALAZINE 25 MG TABLET PO SCH ×3 (11:43→22:01)
[2021-06-22] MEDS: Gabapentin 100 MG CAPSULE PO SCH (11:43)
[2021-06-22] MEDS ORDERED: Iron Sucrose Complex 200 MG in 0.9 % Sodium Chloride 100 ML IVPB SCH (12:30)
[2021-06-22] MEDS: Loratadine 10 MG TABLET PO SCH (13:41)
[2021-06-22] MEDS: cloNIDine HCL 0.1 MG TABLET PO SCH ×3 (13:41→22:03)
[2021-06-22] MEDS: lamoTRIgine 100 MG TABLET PO SCH (22:01)
[2021-06-22] MEDS: Famotidine 20 MG TABLET PO SCH (22:01)
[2021-06-22] MEDS: Primidone 50 MG TABLET PO SCH (22:01)
[2021-06-22] MEDS: Melatonin 3 MG TABLET PO PRN (22:01)
[2021-06-23] MEDS: Heparin 25,000 UNIT/250 ML 25,000 UNIT/250 ML IV.SOLN IVC SCH (01:42)
[2021-06-23] MEDS: Ipratropium/Albuterol Neb 3 ML IH SCH ×4 (03:54→20:23)
[2021-06-23 06:04] LABS: Basophils # 0.1 K/mcL (0.0-0.2); Basophils % 0.7 %; Eosinophils # 0.7 K/mcL (0.0-0.6); Eosinophils % 9.2 %; Hematocrit 24.3 % (37.5-50.1); Hemoglobin 7.5 g/dL (12.9-16.9); Immature Granulocytes % 2.3 % (0-4); Lymphocytes # 1.5 K/mcL (0.6-4.6); Lymphocytes % 20.2 %; Mean Corpuscular HGB Conc 30.9 g/dL (31.6-35.5); Mean Corpuscular Hemoglobin 27.1 pg (28.0-33.3); Mean Corpuscular Volume 87.7 fL (83.0-100.0); Mean Platelet Volume 10.5 fL (9.4-12.4); Monocytes % 13.5 %; Platelet Count 188 K/mcL (140-400); Red Blood Count 2.77 M/mcL (4.19-5.50); Red Cell Distribution Width 14.5 % (11.5-14.5); Segmented Neutrophils % 54.1 %; White Blood Count 7.4 K/mcL (4.3-11.1)
[2021-06-23 06:12] LABS: INR 1.3; Prothrombin Time 14.9 Seconds (9.4-12.1)
[2021-06-23 06:16] LABS: Bilirubin,Total 0.3 mg/dL (0.3-1.0); Calcium 8.5 mg/dL (8.6-10.3); Globulin 2.9 g/dL (2.4-3.5); Potassium 4.4 mEq/L (3.5-5.1); Total Protein 5.9 g/dL (6.4-8.9)
[2021-06-23] MEDS: cloNIDine HCL 0.1 MG TABLET PO SCH ×3 (09:29→21:13)
[2021-06-23] MEDS: Loratadine 10 MG TABLET PO SCH (09:29)
[2021-06-23] MEDS: carvediloL 25 MG TABLET PO SCH ×2 (09:29→17:13)
[2021-06-23] MEDS: hydrALAZINE 25 MG TABLET PO SCH ×2 (09:29→18:14)
[2021-06-23] MEDS: Divalproex (12 HR) 250 MG TABLET PO SCH ×2 (09:29→21:12)
[2021-06-23] MEDS: Finasteride 5 MG TABLET PO SCH (09:29)
[2021-06-23] MEDS: Tobramycin Opth SOLN 5 ML BOTTLE BOTH EYES SCH ×2 (09:30→21:15)
[2021-06-23] MEDS: Insulin LISPRO 300 UNITS/3 ML VIAL SUBQ SCH ×4 (09:30→21:12)
[2021-06-23] MEDS: Fluticasone Propionate Nasal 50 MCG/SPRAY BOTTLE NS SCH (09:30)
[2021-06-23] MEDS: polyethylene glycoL 3350 17 GM POWD.PACK PO SCH ×2 (09:30→21:15)
[2021-06-23] MEDS: Insulin DETEMIR 100 UNIT/ML X5UNITS SUBQ SCH ×2 (09:30→21:14)
[2021-06-23] MEDS ORDERED: Iron Sucrose Complex 200 MG in 0.9 % Sodium Chloride 100 ML IVPB ONE (09:52)
[2021-06-23] MEDS: Clotrimazole 1% CRM 15 GM TUBE TP PRN (17:15)
[2021-06-23] MEDS ORDERED: Warfarin perPT PO PRN (18:00)
[2021-06-23] MEDS ORDERED: *HR* Warfarin 2.5 MG TABLET PO ONE (18:00)
[2021-06-23] MEDS: Melatonin 3 MG TABLET PO PRN (21:11)
[2021-06-23] MEDS: Primidone 50 MG TABLET PO SCH (21:11)
[2021-06-23] MEDS: Gabapentin 100 MG CAPSULE PO SCH (21:11)
[2021-06-23] MEDS: lamoTRIgine 100 MG TABLET PO SCH (21:12)
[2021-06-23] MEDS: Famotidine 20 MG TABLET PO SCH (21:12)
[2021-06-24] MEDS: Ipratropium/Albuterol Neb 3 ML IH SCH ×5 (04:07→21:35)
[2021-06-24 05:49] LABS: Basophils # 0.1 K/mcL (0.0-0.2); Basophils % 0.7 %; Eosinophils # 0.7 K/mcL (0.0-0.6); Eosinophils % 8.6 %; Hematocrit 24.4 % (37.5-50.1); Hemoglobin 7.5 g/dL (12.9-16.9); Immature Granulocytes % 4.2 % (0-4); Lymphocytes # 1.5 K/mcL (0.6-4.6); Lymphocytes % 19.2 %; Mean Corpuscular HGB Conc 30.7 g/dL (31.6-35.5); Mean Corpuscular Hemoglobin 27.1 pg (28.0-33.3); Mean Corpuscular Volume 88.1 fL (83.0-100.0); Mean Platelet Volume 10.5 fL (9.4-12.4); Monocytes # 1.2 K/mcL (0.0-1.3); Monocytes % 14.9 %; Neutrophils # 4.2 K/mcL (1.6-8.9); Platelet Count 197 K/mcL (140-400); Red Blood Count 2.77 M/mcL (4.19-5.50); Red Cell Distribution Width 14.7 % (11.5-14.5); Segmented Neutrophils % 52.4 %
[2021-06-24] MEDS: Heparin 25,000 UNIT/250 ML 25,000 UNIT/250 ML IV.SOLN IVC SCH ×4 (05:53→23:55)
[2021-06-24 05:57] LABS: Albumin 2.9 g/dL (3.5-5.7); Bilirubin,Total 0.4 mg/dL (0.3-1.0); Calcium 8.3 mg/dL (8.6-10.3); Potassium 4.5 mEq/L (3.5-5.1); Total Protein 5.9 g/dL (6.4-8.9)
[2021-06-24 06:00] LABS: INR 1.3; Prothrombin Time 14.3 Seconds (9.4-12.1)
[2021-06-24] MEDS: Insulin LISPRO 300 UNITS/3 ML VIAL SUBQ SCH ×4 (08:24→21:31)
[2021-06-24] MEDS: carvediloL 25 MG TABLET PO SCH ×2 (08:29→16:04)
[2021-06-24] MEDS: cloNIDine HCL 0.1 MG TABLET PO SCH ×3 (08:29→21:31)
[2021-06-24] MEDS: Divalproex (12 HR) 250 MG TABLET PO SCH ×2 (08:29→21:28)
[2021-06-24] MEDS: polyethylene glycoL 3350 17 GM POWD.PACK PO SCH ×2 (08:29→21:31)
[2021-06-24] MEDS: Finasteride 5 MG TABLET PO SCH (08:29)
[2021-06-24] MEDS: Loratadine 10 MG TABLET PO SCH (08:29)
[2021-06-24] MEDS: Insulin DETEMIR 100 UNIT/ML X5UNITS SUBQ SCH ×2 (08:30→21:32)
[2021-06-24] MEDS: Fluticasone Propionate Nasal 50 MCG/SPRAY BOTTLE NS SCH (08:30)
[2021-06-24] MEDS: Tobramycin Opth SOLN 5 ML BOTTLE BOTH EYES SCH ×2 (08:38→21:32)
[2021-06-24] MEDS: Acetaminophen 325 MG TABLET PO PRN (16:06)
[2021-06-24] MEDS: Clotrimazole 1% CRM 15 GM TUBE TP PRN (16:08)
[2021-06-24] MEDS ORDERED: *HR* Warfarin 2.5 MG TABLET PO ONE (18:00)
[2021-06-24] MEDS: Famotidine 20 MG TABLET PO SCH (21:28)
[2021-06-24] MEDS: Gabapentin 100 MG CAPSULE PO SCH (21:29)
[2021-06-24] MEDS: Melatonin 3 MG TABLET PO PRN (21:29)
[2021-06-24] MEDS: lamoTRIgine 100 MG TABLET PO SCH (21:30)
[2021-06-24] MEDS: Primidone 50 MG TABLET PO SCH (21:30)
[2021-06-25] MEDS: Ipratropium/Albuterol Neb 3 ML IH SCH ×4 (03:43→20:32)
[2021-06-25 05:08] LABS: Basophils # 0.1 K/mcL (0.0-0.2); Basophils % 0.9 %; Eosinophils # 0.6 K/mcL (0.0-0.6); Hematocrit 24.7 % (37.5-50.1); Hemoglobin 7.7 g/dL (12.9-16.9); Immature Granulocytes % 3.8 % (0-4); Lymphocytes # 1.5 K/mcL (0.6-4.6); Lymphocytes % 16.9 %; Mean Corpuscular HGB Conc 31.2 g/dL (31.6-35.5); Mean Corpuscular Hemoglobin 27.3 pg (28.0-33.3); Mean Corpuscular Volume 87.6 fL (83.0-100.0); Mean Platelet Volume 10.4 fL (9.4-12.4); Monocytes # 1.2 K/mcL (0.0-1.3); Monocytes % 13.8 %; Neutrophils # 5.2 K/mcL (1.6-8.9); Platelet Count 228 K/mcL (140-400); Red Blood Count 2.82 M/mcL (4.19-5.50); Red Cell Distribution Width 14.7 % (11.5-14.5); Segmented Neutrophils % 57.6 %
[2021-06-25 05:17] LABS: INR 1.4; Prothrombin Time 15.6 Seconds (9.4-12.1)
[2021-06-25 05:24] LABS: Albumin 2.9 g/dL (3.5-5.7); Albumin/Globulin Ratio 0.9 (1.1-2.2); Bilirubin,Total 0.4 mg/dL (0.3-1.0); Calcium 8.3 mg/dL (8.6-10.3); Globulin 3.3 g/dL (2.4-3.5); Potassium 4.5 mEq/L (3.5-5.1); Total Protein 6.2 g/dL (6.4-8.9)
[2021-06-25] MEDS: Insulin LISPRO 300 UNITS/3 ML VIAL SUBQ SCH ×4 (07:23→22:06)
[2021-06-25] MEDS: Ondansetron 4 MG/2 ML VIAL IVP PRN (07:34)
[2021-06-25] MEDS: Acetaminophen 325 MG TABLET PO PRN (07:34)
[2021-06-25] MEDS: cloNIDine HCL 0.1 MG TABLET PO SCH ×3 (07:35→22:41)
[2021-06-25] MEDS: polyethylene glycoL 3350 17 GM POWD.PACK PO SCH ×2 (07:35→22:42)
[2021-06-25] MEDS: Finasteride 5 MG TABLET PO SCH (07:36)
[2021-06-25] MEDS: Fluticasone Propionate Nasal 50 MCG/SPRAY BOTTLE NS SCH (07:37)
[2021-06-25] MEDS: Divalproex (12 HR) 250 MG TABLET PO SCH ×2 (07:37→22:41)
[2021-06-25] MEDS: carvediloL 25 MG TABLET PO SCH ×2 (07:37→16:30)
[2021-06-25] MEDS: Loratadine 10 MG TABLET PO SCH (07:37)
[2021-06-25] MEDS: Tobramycin Opth SOLN 5 ML BOTTLE BOTH EYES SCH ×2 (07:41→23:15)
[2021-06-25] MEDS: Insulin DETEMIR 100 UNIT/ML X5UNITS SUBQ SCH ×2 (07:41→22:40)
[2021-06-25] MEDS ORDERED: cloNIDine HCL 0.1 MG TABLET PO SCH (08:00)
[2021-06-25] MEDS ORDERED: cloNIDine HCL 0.1 MG TABLET PO STA (08:22)
[2021-06-25] MEDS: Nystatin POWDER 30 GM BOTTLE TP SCH ×2 (14:13→22:43)
[2021-06-25] MEDS: Saline Nasal Spray 44 ML BOTTLE NS PRN ×2 (14:14→22:43)
[2021-06-25] MEDS: Heparin 25,000 UNIT/250 ML 25,000 UNIT/250 ML IV.SOLN IVC SCH (15:20)
[2021-06-25] MEDS ORDERED: *HR* Warfarin 2.5 MG TABLET PO ONE (18:00)
[2021-06-25] MEDS: Famotidine 20 MG TABLET PO SCH (22:41)
[2021-06-25] MEDS: lamoTRIgine 100 MG TABLET PO SCH (22:41)
[2021-06-25] MEDS: Melatonin 3 MG TABLET PO PRN (22:41)
[2021-06-25] MEDS: Primidone 50 MG TABLET PO SCH (22:41)
[2021-06-25] MEDS: Gabapentin 100 MG CAPSULE PO SCH (22:42)
[2021-06-26] MEDS: Ipratropium/Albuterol Neb 3 ML IH SCH ×2 (04:11→09:14)
[2021-06-26] MEDS: Divalproex (12 HR) 250 MG TABLET PO SCH (07:38)
[2021-06-26] MEDS: Finasteride 5 MG TABLET PO SCH (07:38)
[2021-06-26] MEDS: carvediloL 25 MG TABLET PO SCH (07:38)
[2021-06-26] MEDS: Insulin LISPRO 300 UNITS/3 ML VIAL SUBQ SCH ×2 (07:38→10:55)
[2021-06-26] MEDS: cloNIDine HCL 0.1 MG TABLET PO SCH ×2 (07:38→15:32)
[2021-06-26] MEDS: polyethylene glycoL 3350 17 GM POWD.PACK PO SCH (07:38)
[2021-06-26] MEDS: Loratadine 10 MG TABLET PO SCH (07:38)
[2021-06-26] MEDS: Nystatin POWDER 30 GM BOTTLE TP SCH ×2 (07:40→15:31)
[2021-06-26] MEDS: Insulin DETEMIR 100 UNIT/ML X5UNITS SUBQ SCH (07:40)
[2021-06-26 08:12] LABS: Basophils # 0.1 K/mcL (0.0-0.2); Basophils % 0.7 %; Eosinophils # 0.6 K/mcL (0.0-0.6); Eosinophils % 6.4 %; Hematocrit 25.1 % (37.5-50.1); Hemoglobin 7.6 g/dL (12.9-16.9); Immature Granulocytes % 2.1 % (0-4); Lymphocytes # 1.2 K/mcL (0.6-4.6); Mean Corpuscular HGB Conc 30.3 g/dL (31.6-35.5); Mean Corpuscular Hemoglobin 26.8 pg (28.0-33.3); Mean Corpuscular Volume 88.4 fL (83.0-100.0); Mean Platelet Volume 10.4 fL (9.4-12.4); Monocytes # 1.2 K/mcL (0.0-1.3); Monocytes % 13.8 %; Neutrophils # 5.8 K/mcL (1.6-8.9); Platelet Count 229 K/mcL (140-400); Red Blood Count 2.84 M/mcL (4.19-5.50); Red Cell Distribution Width 14.8 % (11.5-14.5)
[2021-06-26 08:19] LABS: INR 1.6; Prothrombin Time 17.9 Seconds (9.4-12.1)
[2021-06-26 08:46] LABS: Calcium 8.3 mg/dL (8.6-10.3); Magnesium 2.1 mg/dL (1.6-2.6); Phosphorous 3.9 mg/dL (2.7-4.5); Potassium 4.7 mEq/L (3.5-5.1)
[2021-06-26] MEDS: Tobramycin Opth SOLN 5 ML BOTTLE BOTH EYES SCH (09:11)
[2021-06-26] MEDS: Fluticasone Propionate Nasal 50 MCG/SPRAY BOTTLE NS SCH (09:11)
[2021-06-26] MEDS: Albumin 25% 25gram/100mL 25 GM/100 ML IV.SOLN IVC SCH ×2 (09:28→10:55)
[2021-06-26] MEDS ORDERED: hydrALAZINE 25 MG TABLET PO SCH (10:32)
[2021-06-26 10:53] VITALS: BP 166/67; PULSE 65; TEMP 97.9
[2021-06-26] MEDS ORDERED: *HR* Labetalol 20 MG/4 ML SYRINGE IVP ONE (12:00)
[2021-06-26 12:22] LABS: Adenovirus Not Detected (Not Detect); Bordetella Pertussis Not Detected (Not Detect); Chlamydophila pneumoniae Not Detected (Not Detect); Coronavirus 229E Not Detected (Not Detect); Coronavirus HKU1 Not Detected (Not Detect); Coronavirus NL63 Not Detected (Not Detect); Coronavirus OC43 Not Detected (Not Detect); Human Metapneumovirus Not Detected (Not Detect); Human Rhinovirus/Enterovirus Not Detected (Not Detect); Influenza A Subtype 2009 H1 Not Detected (Not Detect); Influenza B Not Detected (Not Detect); Mycoplasma pneumoniae Not Detected (Not Detect); Parainfluenza Virus 1 Not Detected (Not Detect); Parainfluenza Virus 2 Not Detected (Not Detect); Parainfluenza Virus 3 Not Detected (Not Detect); Parainfluenza Virus 4 Not Detected (Not Detect); Respiratory Syncytial Virus Not Detected (Not Detect); SARS-CoV-2 Not Detected (Not Detect)
[2021-06-26 13:12] VITALS: O2SAT 92
[2021-06-26] MEDS ORDERED: *HR* Warfarin 2.5 MG TABLET PO ONE (18:00)
== END 2021-06-26 16:05 | disposition home or self-care (01) | DRG 682 ==
LOC: 2ANU → SUATTDRO 05:49
PROVIDERS: ADMIT Pharmacist; ATTEND Internal Medicine

== ENCOUNTER 2021-07-04 13:06 | Inpatient (IN) ==
[2021-07-04] MEDS ORDERED: *HR* Dextrose 50 % in Water (Syg) 50 ML SYRINGE ONE (17:28)
[2021-07-04] MEDS ORDERED: *HR* Dextrose 50 % in Water (Syg) 50 ML SYRINGE IVP ONE (17:30)
[2021-07-04] MEDS ORDERED: Naloxone 0.4 MG/ML INJ IVP PRN (17:39)
[2021-07-04] MEDS ORDERED: Warfarin perPT PO PRN (18:00)
[2021-07-04 18:25] LABS: Basophils # 0.1 K/mcL (0.0-0.2); Basophils % 1.1 %; Eosinophils # 0.9 K/mcL (0.0-0.6); Hematocrit 29.9 % (37.5-50.1); Hemoglobin 8.8 g/dL (12.9-16.9); Immature Granulocytes % 0.7 % (0-4); Lymphocytes # 1.5 K/mcL (0.6-4.6); Lymphocytes % 20.2 %; Mean Corpuscular HGB Conc 29.4 g/dL (31.6-35.5); Mean Corpuscular Hemoglobin 27.1 pg (28.0-33.3); Mean Platelet Volume 9.7 fL (9.4-12.4); Monocytes % 13.8 %; Neutrophils # 3.9 K/mcL (1.6-8.9); Platelet Count 274 K/mcL (140-400); Red Blood Count 3.25 M/mcL (4.19-5.50); Red Cell Distribution Width 15.8 % (11.5-14.5); Segmented Neutrophils % 52.2 %; White Blood Count 7.4 K/mcL (4.3-11.1)
[2021-07-04 18:34] LABS: Prothrombin Time 22.4 Seconds (9.4-12.1)
[2021-07-04] MEDS ORDERED: Dextrose Gel 15 GM/37.5 ML TUBE PO PRN ×2 (19:26)
[2021-07-04] MEDS ORDERED: D5% in Water 1,000 ML IVC PRN (19:26)
[2021-07-04] MEDS ORDERED: *HR* Dextrose 50 % in Water (Syg) 50 ML SYRINGE IVP PRN (19:26)
[2021-07-04] MEDS ORDERED: *HR* Warfarin 2.5 MG TABLET PO ONE (19:30)
[2021-07-04] MEDS: Divalproex (12 HR) 250 MG TABLET PO SCH (19:48)
[2021-07-04] MEDS: Bumetanide 1 MG/4 ML VIAL IVP SCH (19:49)
[2021-07-04] MEDS: Insulin LISPRO 300 UNITS/3 ML VIAL SUBQ SCH (20:10)
[2021-07-04] MEDS ORDERED: amLODIPine 5 MG TABLET PO SCH (21:00)
[2021-07-05] MEDS ORDERED: Insulin LISPRO 300 UNITS/3 ML VIAL SUBQ SCH
[2021-07-05 01:33] LABS: INR 2.1; Prothrombin Time 23.7 Seconds (9.4-12.1)
[2021-07-05 01:46] LABS: Calcium 8.9 mg/dL (8.6-10.3); Magnesium 3.3 mg/dL (1.6-2.6); Phosphorous 3.5 mg/dL (2.7-4.5); Potassium 5.1 mEq/L (3.5-5.1)
[2021-07-05] MEDS: Insulin LISPRO 300 UNITS/3 ML VIAL SUBQ SCH ×4 (07:12→21:11)
[2021-07-05] MEDS: Divalproex (12 HR) 250 MG TABLET PO SCH ×2 (08:21→20:18)
[2021-07-05] MEDS: carvediloL 25 MG TABLET PO SCH ×2 (08:21→16:52)
[2021-07-05] MEDS: Bumetanide 1 MG/4 ML VIAL IVP SCH ×2 (08:22→16:52)
[2021-07-05] MEDS: Famotidine 20 MG TABLET PO SCH (08:22)
[2021-07-05] MEDS ORDERED: Fluticasone Propionate Nasal 50 MCG/SPRAY BOTTLE NS PRN (10:17)
[2021-07-05] MEDS ORDERED: LACTASE 3000 UNIT PO PRN (10:17)
[2021-07-05] MEDS ORDERED: Saline Nasal Spray 44 ML BOTTLE NS PRN (10:17)
[2021-07-05] MEDS ORDERED: MOM Conc 10 ML UD.LIQ PO PRN (10:48)
[2021-07-05] MEDS ORDERED: Clotrimazole 1% CRM 15 GM TUBE TP PRN (11:00)
[2021-07-05] MEDS ORDERED: Methyl Salicylate/Menthol 57 APPL/57 GM TUBE TP PRN (11:02)
[2021-07-05] MEDS ORDERED: Methyl Salicylate/Menthol 85 APPL/85 GM TUBE TP PRN (11:15)
[2021-07-05] MEDS ORDERED: *HR* Warfarin 2.5 MG TABLET PO ONE (18:00)
[2021-07-06 06:51] LABS: Hemoglobin 9.2 g/dL (12.9-16.9); Mean Corpuscular HGB Conc 30.7 g/dL (31.6-35.5); Mean Corpuscular Hemoglobin 27.5 pg (28.0-33.3); Mean Corpuscular Volume 89.6 fL (83.0-100.0); Mean Platelet Volume 9.1 fL (9.4-12.4); Platelet Count 239 K/mcL (140-400); Red Blood Count 3.35 M/mcL (4.19-5.50); Red Cell Distribution Width 15.9 % (11.5-14.5); White Blood Count 9.7 K/mcL (4.3-11.1)
[2021-07-06 06:57] LABS: INR 2.2; Prothrombin Time 24.6 Seconds (9.4-12.1)
[2021-07-06 07:10] LABS: Calcium 8.9 mg/dL (8.6-10.3); Phosphorous 3.1 mg/dL (2.7-4.5); Potassium 5.4 mEq/L (3.5-5.1)
[2021-07-06] MEDS: carvediloL 25 MG TABLET PO SCH ×2 (08:22→17:13)
[2021-07-06] MEDS: Loratadine 10 MG TABLET PO SCH (08:22)
[2021-07-06] MEDS: Finasteride 5 MG TABLET PO SCH (08:23)
[2021-07-06] MEDS: metOLazone 5 MG TABLET PO SCH (08:23)
[2021-07-06] MEDS: Famotidine 20 MG TABLET PO SCH (08:23)
[2021-07-06] MEDS: Insulin LISPRO 300 UNITS/3 ML VIAL SUBQ SCH ×4 (08:24→19:53)
[2021-07-06] MEDS: Bumetanide 1 MG/4 ML VIAL IVP SCH ×2 (08:24→17:14)
[2021-07-06] MEDS: Divalproex (12 HR) 250 MG TABLET PO SCH ×2 (08:24→19:57)
[2021-07-06] MEDS ORDERED: SODIUM ZIRCONIUM CYCLOSILICATE 5 GM POWD.PACK PO ONE (09:01)
[2021-07-06] MEDS: amLODIPine 5 MG TABLET PO SCH (13:05)
[2021-07-06] MEDS ORDERED: lisinopriL 20 MG TABLET PO ONE (17:15)
[2021-07-06] MEDS ORDERED: *HR* Warfarin 2.5 MG TABLET PO ONE (18:00)
[2021-07-06] MEDS: Ondansetron ODT 4 MG TAB.RAPDIS SL PRN (19:57)
[2021-07-07 07:03] LABS: Hematocrit 30.5 % (37.5-50.1); Mean Corpuscular HGB Conc 29.5 g/dL (31.6-35.5); Mean Corpuscular Hemoglobin 26.7 pg (28.0-33.3); Mean Corpuscular Volume 90.5 fL (83.0-100.0); Mean Platelet Volume 9.5 fL (9.4-12.4); Platelet Count 225 K/mcL (140-400); Red Blood Count 3.37 M/mcL (4.19-5.50); Red Cell Distribution Width 15.6 % (11.5-14.5); White Blood Count 10.1 K/mcL (4.3-11.1)
[2021-07-07 07:19] LABS: INR 1.8; Prothrombin Time 19.5 Seconds (9.4-12.1)
[2021-07-07 07:22] LABS: Calcium 8.8 mg/dL (8.6-10.3); Magnesium 2.8 mg/dL (1.6-2.6); Phosphorous 3.6 mg/dL (2.7-4.5); Potassium 5.2 mEq/L (3.5-5.1)
[2021-07-07] MEDS ORDERED: 0.9 % Sodium Chloride 250 ML IVC PRN (07:26)
[2021-07-07] MEDS ORDERED: 0.9 % Sodium Chloride 1,000 ML PRIME SCH (07:30)
[2021-07-07] MEDS: Insulin LISPRO 300 UNITS/3 ML VIAL SUBQ SCH ×4 (07:35→20:24)
[2021-07-07] MEDS: Divalproex (12 HR) 250 MG TABLET PO SCH ×2 (07:57→20:23)
[2021-07-07] MEDS: carvediloL 25 MG TABLET PO SCH ×2 (07:57→16:56)
[2021-07-07] MEDS: lisinopriL 20 MG TABLET PO SCH (07:57)
[2021-07-07] MEDS: amLODIPine 5 MG TABLET PO SCH (07:57)
[2021-07-07] MEDS: Finasteride 5 MG TABLET PO SCH (07:58)
[2021-07-07] MEDS: metOLazone 5 MG TABLET PO SCH (07:58)
[2021-07-07] MEDS: Famotidine 20 MG TABLET PO SCH (07:58)
[2021-07-07] MEDS: Loratadine 10 MG TABLET PO SCH (07:58)
[2021-07-07] MEDS: Bumetanide 1 MG/4 ML VIAL IVP SCH ×2 (07:58→16:57)
[2021-07-07] MEDS: Ondansetron ODT 4 MG TAB.RAPDIS SL PRN (08:13)
[2021-07-07] MEDS: Acetaminophen 325 MG TABLET PO PRN (13:37)
[2021-07-07] MEDS ORDERED: *HR* Heparin 5,000 UNIT/ML VIAL ONE (14:32)
[2021-07-07] MEDS: Melatonin 3 MG TABLET PO PRN (20:23)
[2021-07-07] MEDS: lamoTRIgine 100 MG TABLET PO SCH (20:26)
[2021-07-07] MEDS: Primidone 50 MG TABLET PO SCH (20:26)
[2021-07-08 01:31] LABS: Basophils # 0.1 K/mcL (0.0-0.2); Eosinophils # 0.7 K/mcL (0.0-0.6); Eosinophils % 7.9 %; Hematocrit 29.3 % (37.5-50.1); Hemoglobin 8.9 g/dL (12.9-16.9); Immature Granulocytes % 0.3 % (0-4); Lymphocytes # 1.7 K/mcL (0.6-4.6); Mean Corpuscular HGB Conc 30.4 g/dL (31.6-35.5); Mean Corpuscular Hemoglobin 27.5 pg (28.0-33.3); Mean Corpuscular Volume 90.4 fL (83.0-100.0); Mean Platelet Volume 9.4 fL (9.4-12.4); Monocytes # 1.1 K/mcL (0.0-1.3); Monocytes % 11.4 %; Neutrophils # 5.8 K/mcL (1.6-8.9); Platelet Count 212 K/mcL (140-400); Red Blood Count 3.24 M/mcL (4.19-5.50); Red Cell Distribution Width 15.5 % (11.5-14.5); Segmented Neutrophils % 61.4 %; White Blood Count 9.4 K/mcL (4.3-11.1)
[2021-07-08 01:40] LABS: INR 1.8; Prothrombin Time 20.2 Seconds (9.4-12.1)
[2021-07-08 01:56] LABS: Potassium 4.8 mEq/L (3.5-5.1)
[2021-07-08] MEDS: carvediloL 25 MG TABLET PO SCH ×2 (08:00→17:56)
[2021-07-08] MEDS: Finasteride 5 MG TABLET PO SCH (08:00)
[2021-07-08] MEDS: lisinopriL 20 MG TABLET PO SCH (08:00)
[2021-07-08] MEDS: Divalproex (12 HR) 250 MG TABLET PO SCH ×2 (08:00→21:23)
[2021-07-08] MEDS: Famotidine 20 MG TABLET PO SCH (08:00)
[2021-07-08] MEDS: Bumetanide 1 MG/4 ML VIAL IVP SCH ×2 (08:00→17:56)
[2021-07-08] MEDS: amLODIPine 5 MG TABLET PO SCH (08:00)
[2021-07-08] MEDS: metOLazone 5 MG TABLET PO SCH (08:00)
[2021-07-08] MEDS: Loratadine 10 MG TABLET PO SCH (08:00)
[2021-07-08] MEDS: Insulin LISPRO 300 UNITS/3 ML VIAL SUBQ SCH ×4 (08:01→21:24)
[2021-07-08] MEDS: Acetaminophen 325 MG TABLET PO PRN (08:16)
[2021-07-08] MEDS ORDERED: *HR* Warfarin 2.5 MG TABLET PO ONE (18:00)
[2021-07-08] MEDS: Melatonin 3 MG TABLET PO PRN (21:23)
[2021-07-08] MEDS: lamoTRIgine 100 MG TABLET PO SCH (21:23)
[2021-07-08] MEDS: Primidone 50 MG TABLET PO SCH (21:24)
[2021-07-09 05:50] LABS: Basophils # 0.1 K/mcL (0.0-0.2); Basophils % 0.8 %; Eosinophils # 0.9 K/mcL (0.0-0.6); Eosinophils % 7.9 %; Hematocrit 30.7 % (37.5-50.1); Hemoglobin 8.9 g/dL (12.9-16.9); Immature Granulocytes % 0.3 % (0-4); Lymphocytes # 1.6 K/mcL (0.6-4.6); Mean Corpuscular Hemoglobin 26.7 pg (28.0-33.3); Mean Corpuscular Volume 92.2 fL (83.0-100.0); Mean Platelet Volume 9.6 fL (9.4-12.4); Monocytes # 0.9 K/mcL (0.0-1.3); Monocytes % 7.9 %; Neutrophils # 7.4 K/mcL (1.6-8.9); Platelet Count 184 K/mcL (140-400); Red Blood Count 3.33 M/mcL (4.19-5.50); Red Cell Distribution Width 15.2 % (11.5-14.5); Segmented Neutrophils % 68.1 %; White Blood Count 10.8 K/mcL (4.3-11.1)
[2021-07-09 05:56] LABS: INR 2.5; Prothrombin Time 27.2 Seconds (9.4-12.1)
[2021-07-09 06:29] LABS: Potassium 4.7 mEq/L (3.5-5.1)
[2021-07-09] MEDS: Insulin LISPRO 300 UNITS/3 ML VIAL SUBQ SCH ×4 (09:05→21:16)
[2021-07-09] MEDS: Bumetanide 1 MG/4 ML VIAL IVP SCH ×2 (09:11→16:57)
[2021-07-09] MEDS: Divalproex (12 HR) 250 MG TABLET PO SCH ×2 (09:12→21:14)
[2021-07-09] MEDS: carvediloL 25 MG TABLET PO SCH ×2 (09:12→16:58)
[2021-07-09] MEDS: metOLazone 5 MG TABLET PO SCH (09:12)
[2021-07-09] MEDS: Famotidine 20 MG TABLET PO SCH (09:12)
[2021-07-09] MEDS: Finasteride 5 MG TABLET PO SCH (09:13)
[2021-07-09] MEDS: amLODIPine 5 MG TABLET PO SCH (09:13)
[2021-07-09] MEDS: lisinopriL 20 MG TABLET PO SCH (09:13)
[2021-07-09] MEDS: Loratadine 10 MG TABLET PO SCH (09:13)
[2021-07-09] MEDS ORDERED: *HR* Warfarin 1 MG TABLET PO ONE (18:00)
[2021-07-09] MEDS: Melatonin 3 MG TABLET PO PRN (21:15)
[2021-07-09] MEDS: Acetaminophen 325 MG TABLET PO PRN (21:15)
[2021-07-09] MEDS: lamoTRIgine 100 MG TABLET PO SCH (21:15)
[2021-07-09] MEDS: Primidone 50 MG TABLET PO SCH (21:15)
[2021-07-10 07:56] LABS: Hematocrit 28.5 % (37.5-50.1); Hemoglobin 8.5 g/dL (12.9-16.9); Mean Corpuscular HGB Conc 29.8 g/dL (31.6-35.5); Mean Corpuscular Hemoglobin 26.6 pg (28.0-33.3); Mean Corpuscular Volume 89.1 fL (83.0-100.0); Mean Platelet Volume 9.2 fL (9.4-12.4); Platelet Count 166 K/mcL (140-400); Red Cell Distribution Width 15.2 % (11.5-14.5); White Blood Count 9.3 K/mcL (4.3-11.1)
[2021-07-10 08:02] LABS: INR 3.4; Prothrombin Time 37.9 Seconds (9.4-12.1)
[2021-07-10] MEDS: Insulin LISPRO 300 UNITS/3 ML VIAL SUBQ SCH ×4 (08:05→20:51)
[2021-07-10] MEDS: Finasteride 5 MG TABLET PO SCH (08:15)
[2021-07-10] MEDS: Bumetanide 1 MG TABLET PO SCH ×2 (08:15→16:37)
[2021-07-10] MEDS: Divalproex (12 HR) 250 MG TABLET PO SCH ×2 (08:15→21:03)
[2021-07-10] MEDS: amLODIPine 5 MG TABLET PO SCH (08:15)
[2021-07-10] MEDS: Famotidine 20 MG TABLET PO SCH (08:15)
[2021-07-10] MEDS: lisinopriL 20 MG TABLET PO SCH (08:15)
[2021-07-10] MEDS: carvediloL 25 MG TABLET PO SCH ×2 (08:15→16:37)
[2021-07-10 08:16] LABS: Calcium 8.9 mg/dL (8.6-10.3); Magnesium 2.4 mg/dL (1.6-2.6); Phosphorous 3.5 mg/dL (2.7-4.5); Potassium 4.3 mEq/L (3.5-5.1)
[2021-07-10] MEDS: Loratadine 10 MG TABLET PO SCH (08:16)
[2021-07-10] MEDS: Ondansetron ODT 4 MG TAB.RAPDIS SL PRN (09:52)
[2021-07-10] MEDS: lamoTRIgine 100 MG TABLET PO SCH (21:03)
[2021-07-10] MEDS: Acetaminophen 325 MG TABLET PO PRN (21:03)
[2021-07-10] MEDS: Primidone 50 MG TABLET PO SCH (21:03)
[2021-07-10] MEDS: Melatonin 3 MG TABLET PO PRN (21:03)
[2021-07-11 06:05] LABS: Calcium 8.8 mg/dL (8.6-10.3); Potassium 4.2 mEq/L (3.5-5.1)
[2021-07-11 06:28] LABS: INR 3.9; Prothrombin Time 43.2 Seconds (9.4-12.1)
[2021-07-11] MEDS: lisinopriL 20 MG TABLET PO SCH (08:11)
[2021-07-11] MEDS: amLODIPine 5 MG TABLET PO SCH (08:11)
[2021-07-11] MEDS: Divalproex (12 HR) 250 MG TABLET PO SCH ×2 (08:11→21:37)
[2021-07-11] MEDS: carvediloL 25 MG TABLET PO SCH ×2 (08:11→16:06)
[2021-07-11] MEDS: Loratadine 10 MG TABLET PO SCH (08:11)
[2021-07-11] MEDS: Famotidine 20 MG TABLET PO SCH (08:11)
[2021-07-11] MEDS: Finasteride 5 MG TABLET PO SCH (08:12)
[2021-07-11] MEDS ORDERED: metOLazone 5 MG TABLET PO SCH (09:00)
[2021-07-11] MEDS: Insulin LISPRO 300 UNITS/3 ML VIAL SUBQ SCH ×4 (09:25→21:35)
[2021-07-11] MEDS: Acetaminophen 325 MG TABLET PO PRN ×2 (18:20→22:00)
[2021-07-11] MEDS: lamoTRIgine 100 MG TABLET PO SCH (21:37)
[2021-07-11] MEDS: Primidone 50 MG TABLET PO SCH (21:37)
[2021-07-11] MEDS: Ondansetron ODT 4 MG TAB.RAPDIS SL PRN (22:00)
[2021-07-12] MEDS: Acetaminophen 325 MG TABLET PO PRN ×2 (03:37→20:49)
[2021-07-12 07:35] LABS: INR 3.8
[2021-07-12] MEDS: Insulin LISPRO 300 UNITS/3 ML VIAL SUBQ SCH ×4 (07:41→20:50)
[2021-07-12] MEDS: Artificial Tears SOLN 15 ML BOTTLE BOTH EYES SCH ×4 (07:42→20:49)
[2021-07-12] MEDS: Finasteride 5 MG TABLET PO SCH (07:42)
[2021-07-12] MEDS: carvediloL 25 MG TABLET PO SCH ×2 (07:42→16:52)
[2021-07-12] MEDS: lisinopriL 20 MG TABLET PO SCH (07:42)
[2021-07-12] MEDS: Loratadine 10 MG TABLET PO SCH (07:42)
[2021-07-12] MEDS: Famotidine 20 MG TABLET PO SCH (07:42)
[2021-07-12] MEDS: Divalproex (12 HR) 250 MG TABLET PO SCH ×2 (07:42→20:48)
[2021-07-12] MEDS: amLODIPine 5 MG TABLET PO SCH (07:42)
[2021-07-12 07:44] LABS: Calcium 8.6 mg/dL (8.6-10.3); Potassium 4.1 mEq/L (3.5-5.1)
[2021-07-12] MEDS ORDERED: D5% in Water 1,000 ML IVC SCH (10:15)
[2021-07-12] MEDS: Primidone 50 MG TABLET PO SCH (20:47)
[2021-07-12] MEDS: Melatonin 3 MG TABLET PO PRN (20:48)
[2021-07-12] MEDS: lamoTRIgine 100 MG TABLET PO SCH (20:49)
[2021-07-13 02:38] LABS: INR 4.3
[2021-07-13 02:43] LABS: Calcium 8.6 mg/dL (8.6-10.3); Potassium 3.9 mEq/L (3.5-5.1)
[2021-07-13 02:45] LABS: Prothrombin Time 47.5 Seconds (9.4-12.1)
[2021-07-13] MEDS: Divalproex (12 HR) 250 MG TABLET PO SCH (07:34)
[2021-07-13] MEDS: Finasteride 5 MG TABLET PO SCH (07:34)
[2021-07-13] MEDS: Loratadine 10 MG TABLET PO SCH (07:35)
[2021-07-13] MEDS: Famotidine 20 MG TABLET PO SCH (07:35)
[2021-07-13] MEDS: lisinopriL 20 MG TABLET PO SCH (07:35)
[2021-07-13] MEDS: Artificial Tears SOLN 15 ML BOTTLE BOTH EYES SCH ×2 (07:36→13:04)
[2021-07-13] MEDS: carvediloL 25 MG TABLET PO SCH (07:36)
[2021-07-13] MEDS: Insulin LISPRO 300 UNITS/3 ML VIAL SUBQ SCH ×2 (08:55→11:50)
[2021-07-13] MEDS: amLODIPine 5 MG TABLET PO SCH (08:56)
[2021-07-13 11:34] VITALS: BP 121/72; PULSE 68; TEMP 98; O2SAT 98
[2021-07-13 12:25] LABS: Influenza A PCR Negative (Negative); Influenza B PCR Negative (Negative); Resp. Syncytial Virus PCR Negative (Negative)
[2021-07-13 12:29] LABS: SARS-CoV-2 by PCR (In House) Negative (Negative)
== END 2021-07-13 15:30 | DRG 291 ==
LOC: 2ANU → SUATTDRO 16:49
PROVIDERS: ADMIT Internal Medicine; ATTEND Internal Medicine

== ENCOUNTER 2021-07-18 19:05 | Inpatient (IN) ==
[2021-07-18] MEDS ORDERED: Naloxone 0.4 MG/ML INJ IVP PRN (23:46)
[2021-07-18] MEDS ORDERED: D5% in Water 1,000 ML IVC PRN (23:59)
[2021-07-18] MEDS ORDERED: Dextrose Gel 15 GM/37.5 ML TUBE PO PRN ×2 (23:59)
[2021-07-18] MEDS ORDERED: *HR* Dextrose 50 % in Water (Syg) 50 ML SYRINGE IVP PRN (23:59)
[2021-07-19 01:40] LABS: Hematocrit 29.3 % (37.5-50.1); Mean Corpuscular HGB Conc 30.7 g/dL (31.6-35.5); Mean Corpuscular Hemoglobin 27.1 pg (28.0-33.3); Mean Corpuscular Volume 88.3 fL (83.0-100.0); Mean Platelet Volume 10.6 fL (9.4-12.4); Platelet Count 208 K/mcL (140-400); Red Blood Count 3.32 M/mcL (4.19-5.50); Red Cell Distribution Width 16.2 % (11.5-14.5); White Blood Count 7.7 K/mcL (4.3-11.1)
[2021-07-19 01:50] LABS: INR 1.2; Prothrombin Time 13.6 Seconds (9.4-12.1)
[2021-07-19 01:52] LABS: Activated Partial Thrombo Time 34.9 Seconds (26.0-36.0)
[2021-07-19] MEDS ORDERED: Saline Nasal Spray 44 ML BOTTLE NS PRN (01:53)
[2021-07-19 01:58] LABS: Calcium 8.5 mg/dL (8.6-10.3); Magnesium 2.2 mg/dL (1.6-2.6); Phosphorous 3.2 mg/dL (2.7-4.5); Potassium 3.6 mEq/L (3.5-5.1)
[2021-07-19 04:27] LABS: Influenza A PCR Negative (Negative); Influenza B PCR Negative (Negative); Resp. Syncytial Virus PCR Negative (Negative); SARS-CoV-2 by PCR (In House) Negative (Negative)
[2021-07-19 06:00] LABS: Estimated Average Glucose 137 mg/dl; Hemoglobin A1C 6.4 %
[2021-07-19] MEDS: hydrALAZINE 25 MG TABLET PO SCH ×3 (06:05→21:41)
[2021-07-19] MEDS: Insulin LISPRO 300 UNITS/3 ML VIAL SUBQ SCH ×3 (07:35→16:10)
[2021-07-19] MEDS: carvediloL 25 MG TABLET PO SCH ×2 (07:45→16:33)
[2021-07-19] MEDS: amLODIPine 5 MG TABLET PO SCH (07:45)
[2021-07-19] MEDS: Tobramycin Opth SOLN 5 ML BOTTLE BOTH EYES SCH ×2 (07:46→21:43)
[2021-07-19] MEDS: Finasteride 5 MG TABLET PO SCH (07:46)
[2021-07-19] MEDS: Fluticasone Propionate Nasal 50 MCG/SPRAY BOTTLE NS SCH ×2 (07:46→21:43)
[2021-07-19] MEDS: Divalproex (12 HR) 250 MG TABLET PO SCH ×2 (07:46→21:41)
[2021-07-19] MEDS: Icosapent Ethyl [Vascepa] 1 GM PO SCH ×2 (07:47→21:43)
[2021-07-19] MEDS: Bumetanide 1 MG TABLET PO SCH ×2 (11:50→21:42)
[2021-07-19] MEDS: *HR* Heparin 5,000 UNIT/ML VIAL SQ SCH (16:33)
[2021-07-19] MEDS: Primidone 50 MG TABLET PO SCH (21:41)
[2021-07-19] MEDS: Erythromycin OPTH Oint BOTH EYES SCH (21:42)
[2021-07-19] MEDS: lamoTRIgine 100 MG TABLET PO SCH (21:42)
[2021-07-19] MEDS: Acetaminophen 325 MG TABLET PO PRN (22:15)
[2021-07-20 01:36] LABS: Basophils # 0.1 K/mcL (0.0-0.2); Basophils % 0.8 %; Eosinophils % 15.1 %; Hematocrit 26.5 % (37.5-50.1); Hemoglobin 8.4 g/dL (12.9-16.9); Immature Granulocytes % 0.3 % (0-4); Lymphocytes # 1.4 K/mcL (0.6-4.6); Lymphocytes % 20.7 %; Mean Corpuscular HGB Conc 31.7 g/dL (31.6-35.5); Mean Corpuscular Hemoglobin 28.1 pg (28.0-33.3); Mean Corpuscular Volume 88.6 fL (83.0-100.0); Mean Platelet Volume 10.2 fL (9.4-12.4); Monocytes # 0.8 K/mcL (0.0-1.3); Monocytes % 12.1 %; Neutrophils # 3.4 K/mcL (1.6-8.9); Platelet Count 201 K/mcL (140-400); Red Blood Count 2.99 M/mcL (4.19-5.50); Red Cell Distribution Width 16.4 % (11.5-14.5); White Blood Count 6.6 K/mcL (4.3-11.1)
[2021-07-20 01:54] LABS: Calcium 8.4 mg/dL (8.6-10.3); Potassium 3.8 mEq/L (3.5-5.1)
[2021-07-20] MEDS: hydrALAZINE 25 MG TABLET PO SCH ×3 (05:20→21:25)
[2021-07-20] MEDS: *HR* Heparin 5,000 UNIT/ML VIAL SQ SCH ×2 (05:21→17:09)
[2021-07-20 06:23] LABS: Hepatitis B Surface Antibody < 3.10 mIU/mL
[2021-07-20 06:34] LABS: Hepatitis B Surface Antigen Nonreactive (Nonreactive)
[2021-07-20] MEDS: Icosapent Ethyl [Vascepa] 1 GM PO SCH ×2 (07:29→21:28)
[2021-07-20] MEDS: Tobramycin Opth SOLN 5 ML BOTTLE BOTH EYES SCH ×2 (08:25→21:27)
[2021-07-20] MEDS: Fluticasone Propionate Nasal 50 MCG/SPRAY BOTTLE NS SCH ×2 (08:25→21:28)
[2021-07-20] MEDS: Insulin LISPRO 300 UNITS/3 ML VIAL SUBQ SCH ×3 (08:25→17:10)
[2021-07-20] MEDS: Divalproex (12 HR) 250 MG TABLET PO SCH ×2 (08:32→21:26)
[2021-07-20] MEDS: amLODIPine 5 MG TABLET PO SCH (08:32)
[2021-07-20] MEDS: Finasteride 5 MG TABLET PO SCH (08:32)
[2021-07-20] MEDS: carvediloL 25 MG TABLET PO SCH ×2 (08:32→17:10)
[2021-07-20] MEDS: Bumetanide 1 MG TABLET PO SCH (08:32)
[2021-07-20 12:41] LABS: Iron 48 mcg/dL (65-175)
[2021-07-20] MEDS: Primidone 50 MG TABLET PO SCH (21:25)
[2021-07-20] MEDS: lamoTRIgine 100 MG TABLET PO SCH (21:26)
[2021-07-20] MEDS: Erythromycin OPTH Oint BOTH EYES SCH (21:28)
[2021-07-21 02:39] LABS: Basophils % 0.6 %; Eosinophils % 13.7 %; Hematocrit 27.1 % (37.5-50.1); Hemoglobin 8.5 g/dL (12.9-16.9); Immature Granulocytes % 0.4 % (0-4); Lymphocytes # 1.6 K/mcL (0.6-4.6); Lymphocytes % 22.8 %; Mean Corpuscular HGB Conc 31.4 g/dL (31.6-35.5); Mean Corpuscular Hemoglobin 28.1 pg (28.0-33.3); Mean Corpuscular Volume 89.4 fL (83.0-100.0); Mean Platelet Volume 10.4 fL (9.4-12.4); Monocytes % 13.9 %; Neutrophils # 3.5 K/mcL (1.6-8.9); Platelet Count 223 K/mcL (140-400); Red Blood Count 3.03 M/mcL (4.19-5.50); Red Cell Distribution Width 16.6 % (11.5-14.5); Segmented Neutrophils % 48.6 %; White Blood Count 7.1 K/mcL (4.3-11.1)
[2021-07-21 02:48] LABS: INR 1.1; Prothrombin Time 12.1 Seconds (9.4-12.1)
[2021-07-21 02:56] LABS: Calcium 8.7 mg/dL (8.6-10.3)
[2021-07-21] MEDS: *HR* Heparin 5,000 UNIT/ML VIAL SQ SCH ×2 (05:24→17:09)
[2021-07-21] MEDS: hydrALAZINE 25 MG TABLET PO SCH ×3 (05:24→21:14)
[2021-07-21] MEDS ORDERED: 0.9 % Sodium Chloride 250 ML IVC PRN (07:10)
[2021-07-21] MEDS ORDERED: 0.9 % Sodium Chloride 1,000 ML PRIME SCH (07:15)
[2021-07-21] MEDS ORDERED: Lidocaine/EPI 1:100k 1% 50 ML VIAL ONE (07:40)
[2021-07-21] MEDS ORDERED: Heparin 1,000 UNITS/500 mL 500 ML ONE (07:40)
[2021-07-21] MEDS: carvediloL 25 MG TABLET PO SCH ×2 (08:25→17:04)
[2021-07-21] MEDS: amLODIPine 5 MG TABLET PO SCH (08:25)
[2021-07-21] MEDS: Bumetanide 1 MG TABLET PO SCH (08:25)
[2021-07-21] MEDS: Finasteride 5 MG TABLET PO SCH (08:26)
[2021-07-21] MEDS: Divalproex (12 HR) 250 MG TABLET PO SCH ×2 (08:26→21:14)
[2021-07-21] MEDS: Icosapent Ethyl [Vascepa] 1 GM PO SCH (08:26)
[2021-07-21] MEDS: Fluticasone Propionate Nasal 50 MCG/SPRAY BOTTLE NS SCH ×2 (08:26→21:15)
[2021-07-21] MEDS: Tobramycin Opth SOLN 5 ML BOTTLE BOTH EYES SCH (08:26)
[2021-07-21] MEDS: Insulin LISPRO 300 UNITS/3 ML VIAL SUBQ SCH ×3 (08:47→16:58)
[2021-07-21] MEDS ORDERED: *HR* FentaNYL (PF) 100 MCG/2 ML VIAL IVP ONE (10:02)
[2021-07-21] MEDS ORDERED: *HR* Midazolam HCl 2 MG/2 ML VIAL IVP ONE (10:02)
[2021-07-21] MEDS ORDERED: 0.9 % Sodium Chloride 500 ML ONE (10:20)
[2021-07-21] MEDS: ceFAZolin 1,000 MG in 0.9 % Sodium Chloride 100 ML IVPB SCH (10:26)
[2021-07-21] MEDS ORDERED: *HR* Heparin 5,000 UNIT/ML VIAL ONE (10:32)
[2021-07-21] MEDS ORDERED: Warfarin perPT PO PRN (18:00)
[2021-07-21] MEDS ORDERED: *HR* Warfarin 5 MG TABLET PO ONE (18:00)
[2021-07-21] MEDS: lamoTRIgine 100 MG TABLET PO SCH (21:14)
[2021-07-21] MEDS: Primidone 50 MG TABLET PO SCH (21:14)
[2021-07-22 06:20] LABS: Basophils # 0.1 K/mcL (0.0-0.2); Eosinophils # 0.8 K/mcL (0.0-0.6); Eosinophils % 13.3 %; Hematocrit 27.2 % (37.5-50.1); Hemoglobin 8.5 g/dL (12.9-16.9); Immature Granulocytes % 0.5 % (0-4); Lymphocytes # 1.3 K/mcL (0.6-4.6); Lymphocytes % 21.7 %; Mean Corpuscular HGB Conc 31.3 g/dL (31.6-35.5); Mean Corpuscular Hemoglobin 27.9 pg (28.0-33.3); Mean Corpuscular Volume 89.2 fL (83.0-100.0); Mean Platelet Volume 10.1 fL (9.4-12.4); Monocytes # 0.9 K/mcL (0.0-1.3); Monocytes % 13.8 %; Neutrophils # 3.1 K/mcL (1.6-8.9); Platelet Count 213 K/mcL (140-400); Red Blood Count 3.05 M/mcL (4.19-5.50); Red Cell Distribution Width 17.2 % (11.5-14.5); Segmented Neutrophils % 49.7 %; White Blood Count 6.2 K/mcL (4.3-11.1)
[2021-07-22 06:25] LABS: INR 1.1; Prothrombin Time 12.1 Seconds (9.4-12.1)
[2021-07-22] MEDS: *HR* Heparin 5,000 UNIT/ML VIAL SQ SCH ×2 (06:57→17:14)
[2021-07-22] MEDS: hydrALAZINE 25 MG TABLET PO SCH ×3 (06:57→21:38)
[2021-07-22] MEDS: ceFAZolin 1,000 MG in 0.9 % Sodium Chloride 100 ML IVPB SCH (08:10)
[2021-07-22] MEDS: Finasteride 5 MG TABLET PO SCH (08:15)
[2021-07-22] MEDS: amLODIPine 5 MG TABLET PO SCH (08:16)
[2021-07-22] MEDS: Divalproex (12 HR) 250 MG TABLET PO SCH ×2 (08:16→21:34)
[2021-07-22] MEDS: carvediloL 25 MG TABLET PO SCH ×2 (08:16→16:52)
[2021-07-22] MEDS: Bumetanide 1 MG TABLET PO SCH (08:16)
[2021-07-22] MEDS: Fluticasone Propionate Nasal 50 MCG/SPRAY BOTTLE NS SCH ×2 (08:17→21:39)
[2021-07-22] MEDS: Insulin LISPRO 300 UNITS/3 ML VIAL SUBQ SCH ×3 (09:38→16:51)
[2021-07-22] MEDS ORDERED: *HR* Warfarin 2.5 MG TABLET PO ONE (18:00)
[2021-07-22] MEDS: lamoTRIgine 100 MG TABLET PO SCH (21:34)
[2021-07-22] MEDS: Primidone 50 MG TABLET PO SCH (21:35)
[2021-07-22] MEDS ORDERED: Ondansetron 4 MG/2 ML VIAL IVP ONE (21:40)
[2021-07-23 02:01] LABS: Basophils # 0.1 K/mcL (0.0-0.2); Basophils % 0.7 %; Eosinophils # 0.8 K/mcL (0.0-0.6); Eosinophils % 10.1 %; Hematocrit 26.2 % (37.5-50.1); Hemoglobin 8.2 g/dL (12.9-16.9); Immature Granulocytes % 0.3 % (0-4); Lymphocytes # 1.3 K/mcL (0.6-4.6); Mean Corpuscular HGB Conc 31.3 g/dL (31.6-35.5); Mean Corpuscular Hemoglobin 27.2 pg (28.0-33.3); Mean Platelet Volume 9.7 fL (9.4-12.4); Monocytes % 12.5 %; Neutrophils # 4.5 K/mcL (1.6-8.9); Platelet Count 191 K/mcL (140-400); Red Blood Count 3.01 M/mcL (4.19-5.50); Red Cell Distribution Width 16.9 % (11.5-14.5); Segmented Neutrophils % 59.4 %; White Blood Count 7.6 K/mcL (4.3-11.1)
[2021-07-23 02:12] LABS: INR 1.2; Prothrombin Time 13.3 Seconds (9.4-12.1)
[2021-07-23 02:24] LABS: Calcium 8.4 mg/dL (8.6-10.3); Potassium 3.9 mEq/L (3.5-5.1)
[2021-07-23] MEDS: hydrALAZINE 25 MG TABLET PO SCH ×3 (05:37→22:04)
[2021-07-23] MEDS: *HR* Heparin 5,000 UNIT/ML VIAL SQ SCH (05:42)
[2021-07-23] MEDS ORDERED: 0.9 % Sodium Chloride 250 ML IVC PRN (07:06)
[2021-07-23] MEDS ORDERED: *HR* Heparin 10,000 UNIT/10 ML VIAL IV PRN (07:43)
[2021-07-23] MEDS: Divalproex (12 HR) 250 MG TABLET PO SCH ×2 (08:53→19:29)
[2021-07-23] MEDS: amLODIPine 5 MG TABLET PO SCH (08:53)
[2021-07-23] MEDS: Bumetanide 1 MG TABLET PO SCH (08:54)
[2021-07-23] MEDS: Finasteride 5 MG TABLET PO SCH (08:54)
[2021-07-23] MEDS: Fluticasone Propionate Nasal 50 MCG/SPRAY BOTTLE NS SCH ×2 (08:55→22:04)
[2021-07-23] MEDS: Insulin LISPRO 300 UNITS/3 ML VIAL SUBQ SCH ×3 (08:57→19:27)
[2021-07-23] MEDS: carvediloL 25 MG TABLET PO SCH ×2 (09:08→19:28)
[2021-07-23] MEDS ORDERED: *HR* Heparin 5,000 UNIT/ML VIAL IVP PRN ×2 (09:48)
[2021-07-23] MEDS: Heparin 25,000UNIT/250ML 1/2NS 25,000 UNIT/250 ML IV.SOLN IVC SCH (11:31)
[2021-07-23] MEDS: Ondansetron ODT 4 MG TAB.RAPDIS SL PRN (13:22)
[2021-07-23] MEDS ORDERED: *HR* Warfarin 2.5 MG TABLET PO ONE (18:00)
[2021-07-23] MEDS: Primidone 50 MG TABLET PO SCH (19:29)
[2021-07-23] MEDS: lamoTRIgine 100 MG TABLET PO SCH (19:30)
[2021-07-24 05:18] LABS: Hemoglobin 8.6 g/dL (12.9-16.9); Mean Corpuscular HGB Conc 31.9 g/dL (31.6-35.5); Mean Corpuscular Hemoglobin 27.9 pg (28.0-33.3); Mean Corpuscular Volume 87.7 fL (83.0-100.0); Platelet Count 190 K/mcL (140-400); Red Blood Count 3.08 M/mcL (4.19-5.50); Red Cell Distribution Width 16.6 % (11.5-14.5); White Blood Count 6.6 K/mcL (4.3-11.1)
[2021-07-24 05:24] LABS: Heparin anti-factor XA UFH 0.64 IU/mL (0.30-0.70); INR 1.3; Prothrombin Time 14.1 Seconds (9.4-12.1)
[2021-07-24 05:37] LABS: Calcium 8.4 mg/dL (8.6-10.3); Potassium 3.8 mEq/L (3.5-5.1)
[2021-07-24] MEDS: hydrALAZINE 25 MG TABLET PO SCH ×3 (05:50→20:36)
[2021-07-24] MEDS: Heparin 25,000UNIT/250ML 1/2NS 25,000 UNIT/250 ML IV.SOLN IVC SCH ×2 (08:34→22:43)
[2021-07-24] MEDS: carvediloL 25 MG TABLET PO SCH ×2 (08:40→16:50)
[2021-07-24] MEDS: Insulin LISPRO 300 UNITS/3 ML VIAL SUBQ SCH ×3 (08:40→16:39)
[2021-07-24] MEDS: Divalproex (12 HR) 250 MG TABLET PO SCH ×2 (08:40→20:36)
[2021-07-24] MEDS: Bumetanide 1 MG TABLET PO SCH (08:40)
[2021-07-24] MEDS: amLODIPine 5 MG TABLET PO SCH (08:40)
[2021-07-24] MEDS: Fluticasone Propionate Nasal 50 MCG/SPRAY BOTTLE NS SCH ×2 (08:40→20:36)
[2021-07-24] MEDS: Finasteride 5 MG TABLET PO SCH (08:40)
[2021-07-24] MEDS ORDERED: Famotidine 20 MG TABLET PO SCH (09:00)
[2021-07-24 09:26] LABS: % Iron Saturation 28 % (20-55); Transferrin 123 mg/dL (200-400)
[2021-07-24] MEDS: Ondansetron ODT 4 MG TAB.RAPDIS SL PRN ×2 (12:16→21:34)
[2021-07-24] MEDS ORDERED: *HR* Warfarin 5 MG TABLET PO ONE (18:00)
[2021-07-24] MEDS: Melatonin 3 MG TABLET PO PRN (20:36)
[2021-07-24] MEDS: lamoTRIgine 100 MG TABLET PO SCH (20:36)
[2021-07-24] MEDS: Primidone 50 MG TABLET PO SCH (20:36)
[2021-07-24] MEDS: Famotidine 20 MG TABLET PO SCH (20:36)
[2021-07-25] MEDS: hydrALAZINE 25 MG TABLET PO SCH ×3 (06:16→21:55)
[2021-07-25 06:51] LABS: Hematocrit 25.7 % (37.5-50.1); Hemoglobin 8.1 g/dL (12.9-16.9); Mean Corpuscular HGB Conc 31.5 g/dL (31.6-35.5); Mean Corpuscular Volume 88.9 fL (83.0-100.0); Mean Platelet Volume 10.2 fL (9.4-12.4); Platelet Count 210 K/mcL (140-400); Red Blood Count 2.89 M/mcL (4.19-5.50); Red Cell Distribution Width 16.7 % (11.5-14.5); White Blood Count 7.1 K/mcL (4.3-11.1)
[2021-07-25] MEDS ORDERED: 0.9 % Sodium Chloride 250 ML IVC PRN (06:51)
[2021-07-25 06:52] LABS: INR 1.4; Prothrombin Time 15.9 Seconds (9.4-12.1)
[2021-07-25 07:15] LABS: Calcium 8.5 mg/dL (8.6-10.3)
[2021-07-25] MEDS: Insulin LISPRO 300 UNITS/3 ML VIAL SUBQ SCH ×3 (07:18→16:22)
[2021-07-25] MEDS: amLODIPine 5 MG TABLET PO SCH (07:41)
[2021-07-25] MEDS: Bumetanide 1 MG TABLET PO SCH (07:41)
[2021-07-25] MEDS: carvediloL 25 MG TABLET PO SCH ×2 (07:41→16:22)
[2021-07-25] MEDS: Fluticasone Propionate Nasal 50 MCG/SPRAY BOTTLE NS SCH ×2 (07:41→22:04)
[2021-07-25] MEDS: Divalproex (12 HR) 250 MG TABLET PO SCH ×2 (07:41→21:55)
[2021-07-25] MEDS: Finasteride 5 MG TABLET PO SCH (07:41)
[2021-07-25] MEDS: Heparin 25,000UNIT/250ML 1/2NS 25,000 UNIT/250 ML IV.SOLN IVC SCH (08:13)
[2021-07-25] MEDS ORDERED: *HR* Heparin 10,000 UNIT/10 ML VIAL IV PRN (13:15)
[2021-07-25] MEDS ORDERED: *HR* Warfarin 5 MG TABLET PO ONE (18:00)
[2021-07-25] MEDS: Famotidine 20 MG TABLET PO SCH (21:54)
[2021-07-25] MEDS: lamoTRIgine 100 MG TABLET PO SCH (21:54)
[2021-07-25] MEDS: Melatonin 3 MG TABLET PO PRN (21:55)
[2021-07-25] MEDS: Primidone 50 MG TABLET PO SCH (21:55)
[2021-07-26 00:47] LABS: Hematocrit 26.1 % (37.5-50.1); Hemoglobin 8.1 g/dL (12.9-16.9); Mean Corpuscular Hemoglobin 27.4 pg (28.0-33.3); Mean Corpuscular Volume 88.2 fL (83.0-100.0); Mean Platelet Volume 9.6 fL (9.4-12.4); Platelet Count 165 K/mcL (140-400); Red Blood Count 2.96 M/mcL (4.19-5.50); Red Cell Distribution Width 16.4 % (11.5-14.5); White Blood Count 6.6 K/mcL (4.3-11.1)
[2021-07-26 01:02] LABS: INR 1.6; Prothrombin Time 17.6 Seconds (9.4-12.1)
[2021-07-26 01:07] LABS: Calcium 8.2 mg/dL (8.6-10.3); Potassium 3.7 mEq/L (3.5-5.1)
[2021-07-26] MEDS: hydrALAZINE 25 MG TABLET PO SCH ×3 (05:44→21:25)
[2021-07-26] MEDS: Divalproex (12 HR) 250 MG TABLET PO SCH ×2 (09:04→21:24)
[2021-07-26] MEDS: Bumetanide 1 MG TABLET PO SCH (09:04)
[2021-07-26] MEDS: Insulin LISPRO 300 UNITS/3 ML VIAL SUBQ SCH ×3 (09:04→17:24)
[2021-07-26] MEDS: amLODIPine 5 MG TABLET PO SCH (09:04)
[2021-07-26] MEDS: carvediloL 25 MG TABLET PO SCH ×2 (09:04→17:24)
[2021-07-26] MEDS: Finasteride 5 MG TABLET PO SCH (09:05)
[2021-07-26] MEDS: Fluticasone Propionate Nasal 50 MCG/SPRAY BOTTLE NS SCH ×2 (09:05→21:25)
[2021-07-26] MEDS: Heparin 25,000UNIT/250ML 1/2NS 25,000 UNIT/250 ML IV.SOLN IVC SCH (14:01)
[2021-07-26] MEDS: Acetaminophen 325 MG TABLET PO PRN (14:01)
[2021-07-26] MEDS ORDERED: *HR* Warfarin 5 MG TABLET PO ONE ×2 (18:00→20:00)
[2021-07-26] MEDS: Haloperidol Lactate 5 MG/ML VIAL IM ONE ×2 (18:45→20:13)
[2021-07-26] MEDS ORDERED: carvediloL 25 MG TABLET PO ONE (20:00)
[2021-07-26] MEDS: lamoTRIgine 100 MG TABLET PO SCH (21:24)
[2021-07-26] MEDS: Famotidine 20 MG TABLET PO SCH (21:24)
[2021-07-26] MEDS: Melatonin 3 MG TABLET PO PRN (21:25)
[2021-07-26] MEDS: Primidone 50 MG TABLET PO SCH (21:25)
[2021-07-27 01:47] LABS: Hematocrit 26.3 % (37.5-50.1); Hemoglobin 8.3 g/dL (12.9-16.9); Mean Corpuscular HGB Conc 31.6 g/dL (31.6-35.5); Mean Corpuscular Hemoglobin 27.9 pg (28.0-33.3); Mean Corpuscular Volume 88.3 fL (83.0-100.0); Mean Platelet Volume 9.8 fL (9.4-12.4); Platelet Count 176 K/mcL (140-400); Red Blood Count 2.98 M/mcL (4.19-5.50); Red Cell Distribution Width 16.6 % (11.5-14.5); White Blood Count 6.1 K/mcL (4.3-11.1)
[2021-07-27 01:59] LABS: INR 1.6; Prothrombin Time 18.2 Seconds (9.4-12.1)
[2021-07-27 02:09] LABS: Calcium 8.2 mg/dL (8.6-10.3); Potassium 3.6 mEq/L (3.5-5.1)
[2021-07-27] MEDS: hydrALAZINE 25 MG TABLET PO SCH ×3 (06:10→20:30)
[2021-07-27] MEDS: carvediloL 25 MG TABLET PO SCH ×2 (09:26→17:31)
[2021-07-27] MEDS: amLODIPine 5 MG TABLET PO SCH (09:26)
[2021-07-27] MEDS: Divalproex (12 HR) 250 MG TABLET PO SCH ×2 (09:26→20:30)
[2021-07-27] MEDS: Bumetanide 1 MG TABLET PO SCH (09:26)
[2021-07-27] MEDS: Finasteride 5 MG TABLET PO SCH (09:26)
[2021-07-27] MEDS: Ondansetron ODT 4 MG TAB.RAPDIS SL PRN (09:26)
[2021-07-27] MEDS: Insulin LISPRO 300 UNITS/3 ML VIAL SUBQ SCH ×3 (09:27→17:32)
[2021-07-27] MEDS: Fluticasone Propionate Nasal 50 MCG/SPRAY BOTTLE NS SCH ×2 (09:27→21:00)
[2021-07-27] MEDS: Heparin 25,000UNIT/250ML 1/2NS 25,000 UNIT/250 ML IV.SOLN IVC SCH (17:31)
[2021-07-27] MEDS ORDERED: *HR* Warfarin 3 MG TABLET PO ONE (18:00)
[2021-07-27] MEDS: Famotidine 20 MG TABLET PO SCH (20:30)
[2021-07-27] MEDS: Primidone 50 MG TABLET PO SCH (20:30)
[2021-07-27] MEDS: lamoTRIgine 100 MG TABLET PO SCH (20:30)
[2021-07-27] MEDS: Melatonin 3 MG TABLET PO PRN (20:30)
[2021-07-28 02:29] LABS: Hematocrit 26.8 % (37.5-50.1); Hemoglobin 8.1 g/dL (12.9-16.9); Mean Corpuscular HGB Conc 30.2 g/dL (31.6-35.5); Mean Corpuscular Hemoglobin 27.1 pg (28.0-33.3); Mean Corpuscular Volume 89.6 fL (83.0-100.0); Mean Platelet Volume 9.9 fL (9.4-12.4); Platelet Count 157 K/mcL (140-400); Red Blood Count 2.99 M/mcL (4.19-5.50); Red Cell Distribution Width 17.1 % (11.5-14.5); White Blood Count 5.1 K/mcL (4.3-11.1)
[2021-07-28 02:32] LABS: Heparin anti-factor XA UFH 0.68 IU/mL (0.30-0.70); INR 2.4; Prothrombin Time 26.4 Seconds (9.4-12.1)
[2021-07-28 02:52] LABS: Calcium 8.3 mg/dL (8.6-10.3); Potassium 3.5 mEq/L (3.5-5.1)
[2021-07-28] MEDS: hydrALAZINE 25 MG TABLET PO SCH ×2 (05:10→13:48)
[2021-07-28] MEDS ORDERED: *HR* Heparin 10,000 UNIT/10 ML VIAL IV PRN (07:46)
[2021-07-28] MEDS ORDERED: 0.9 % Sodium Chloride 250 ML IVC PRN (07:46)
[2021-07-28] MEDS ORDERED: 0.9 % Sodium Chloride 1,000 ML PRIME SCH (08:00)
[2021-07-28] MEDS: Insulin LISPRO 300 UNITS/3 ML VIAL SUBQ SCH ×3 (10:06→16:41)
[2021-07-28] MEDS: Divalproex (12 HR) 250 MG TABLET PO SCH (10:13)
[2021-07-28] MEDS: amLODIPine 5 MG TABLET PO SCH (10:13)
[2021-07-28] MEDS: Finasteride 5 MG TABLET PO SCH (10:13)
[2021-07-28] MEDS: carvediloL 25 MG TABLET PO SCH ×2 (10:14→17:04)
[2021-07-28] MEDS: Bumetanide 1 MG TABLET PO SCH (10:14)
[2021-07-28] MEDS: Fluticasone Propionate Nasal 50 MCG/SPRAY BOTTLE NS SCH (10:15)
[2021-07-28] MEDS ORDERED: Menthol 1 EACH LOZENGE PO PRN (10:37)
[2021-07-28 11:27] LABS: Adenovirus Not Detected (Not Detect); Coronavirus 229E Not Detected (Not Detect); Coronavirus HKU1 Not Detected (Not Detect); Coronavirus NL63 Not Detected (Not Detect); Coronavirus OC43 Not Detected (Not Detect); SARS-CoV-2 Not Detected (Not Detect)
[2021-07-28 11:28] LABS: Bordetella Pertussis Not Detected (Not Detect); Chlamydophila pneumoniae Not Detected (Not Detect); Human Metapneumovirus DETECTED (Not Detect); Human Rhinovirus/Enterovirus Not Detected (Not Detect); Influenza A Subtype 2009 H1 Not Detected (Not Detect); Influenza B Not Detected (Not Detect); Mycoplasma pneumoniae Not Detected (Not Detect); Parainfluenza Virus 1 Not Detected (Not Detect); Parainfluenza Virus 2 Not Detected (Not Detect); Parainfluenza Virus 3 Not Detected (Not Detect); Parainfluenza Virus 4 Not Detected (Not Detect); Respiratory Syncytial Virus Not Detected (Not Detect)
[2021-07-28] MEDS: Ondansetron ODT 4 MG TAB.RAPDIS SL PRN (15:04)
[2021-07-28 15:26] VITALS: PULSE 89; O2SAT 95
[2021-07-28 16:55] VITALS: BP 148/85; TEMP 98.1
[2021-07-28] MEDS: Acetaminophen 325 MG TABLET PO PRN (17:05)
[2021-07-28] MEDS: Heparin 25,000UNIT/250ML 1/2NS 25,000 UNIT/250 ML IV.SOLN IVC SCH (17:05)
[2021-07-28] MEDS ORDERED: *HR* Warfarin 2.5 MG TABLET PO ONE (18:00)
== END 2021-07-28 17:36 | DRG 291 ==
LOC: 2ANU → SUATTDRO 22:50
PROVIDERS: ADMIT Internal Medicine; ATTEND Family Medicine
PROC: IRPERMA (2021-07-21 12:00)